=== PATIENT | male | born 1940 | race Caucasian/White ===

== ENCOUNTER 2020-06-06 08:49 | Outpatient (CLI) | payer MEDICARE, BC, SELFPAY ==
[2020-06-06 09:19] VITALS: BMI 26.4
--- NOTE | 2020-06-06 09:21 | NMCV_ITS ---
NM maría perf SPECT r/s* [id number] Maxim Pitts Age: 80 Gender: M : 1940 Exam Date: 06/06/2020 10:05 Ordering Phys: Armond Maurice M.D ([email or web address]) Technologist: CLARENCE Edwards Exam Location: [facility] Indications: SOB STRESS TEST Please see separate stress test report in [facility] for full findings IMAGE PROTOCOL Rest/Stress 1 Lexiscan Day Radiopharmaceutical Dose (mCi) Administration Site Administered by Rest: Tc-99m 10.3 IV CLARENCE Edwards Sestamibi Stress:Tc-99m 33.0 IV CLARENCE Matias Sestamibi Rest: 06-Jun-2020 60 Discovery 630 Stress: 06-Jun-2020 45 Discovery 630 0.4mg Lexiscan. Images obtained in supine and prone position. SPECT RESULTS Technical Quality: Good Raw Data Analysis: Normal Image Corrections: No attenuation or motion correction applied Summed Stress Score: 6 Summed Rest Score: 9 Summed Difference Score: 0 PERFUSION FINDINGS Moderate in size, severe in intensity fixed perfusion defects are noted inferior, inferior lateral and lateral thompson. 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 No significant reversibility is noted. There is a small area of reversibility in the anterior wall. FUNCTIONAL RESULTS (calculated via Gated SPECT) Stress Image LV EF (%): 48 Stress EDV (mL):108 TID: 1.15 Stress ESV (mL):56 FUNCTIONAL FINDINGS: LV systolic function is mildly reduced with EF of 48%. IMPRESSIONS 1. Myocardial perfusion imaging is abnormal with fixed defect of inferior, inferolateral and lateral thompson. 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 2. Small, reversible myocardial perfusion defect is noted in anterior wall. 3. LV systolic function is mildly reduced with EF 48% Armond Maurice MD (Electronically Signed) Final Date: 12 June 2020 10:46 S
--- NOTE | 2020-06-06 09:21 | ECG_ITS ---
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 Interpretive Statements NAME OF STUDY: LEXISCAN SESTAMIBI STRESS TEST INDICATION: [Shortness of Breath, ] Procedure: The baseline blood pressure was 126/63 mmHg with a heart rate of 65 bpm. The electrocardiogram showed normal sinus rhythm with normal ST and T's. Occasional PACs noted. The Lexiscan was infused for a duration of 20 seconds. A total of 0.4 mg of Lexiscan was infused. The stress phase was continued for a total of 5 minutes. Heart rate at end of stress phase was 79 bpm, with a blood pressure 126/46 mmHg. The EKG at the peak infusion revealed sinus rhythm with no significant ST-T wave changes and occasional PVCs. Sestamibi was injected 20 seconds after Lexiscan infusion. Blood pressure at the end of recovery phase was 129/50 mmHg with a heart rate of 79 bpm. No significant changes during recovery phase. Conclusion: 1. Normal EKG response to Lexiscan infusion. 2. No Lexiscan induced chest pain or cardiac arrhythmia. 3. Normal blood pressure and heart rate response. 4. Sestamibi/sestamibi perfusion scan pending; see separate report. Electronically Signed On 06-15-2020 18:44:07 COOK CHILI by Armond Maurice M.D. [email or web address]
[2020-06-06 11:00] VITALS: BP 137/65; PULSE 87
[2020-06-06] MEDS: regadenoson 0.4 Mg/5 ml Syringe IVP (11:01)
== END 2020-06-06 08:50 | disposition home or self-care (01) ==
LOC: CDL 08:55
PROVIDERS: PCP Family Medicine; Visit Provider Internal Medicine
DX: R06.02 Shortness of breath (principal)
CPT/HCPCS: 78452; 93017; A9500; J2785

== ENCOUNTER 2020-06-30 10:17 | Outpatient (CLI) | payer MEDICARE, BC, SELFPAY ==
[2020-06-30 11:00] LABS: Basophils # 0.1 10^3/uL (0.0-0.1); Basophils % 0.8 %; Eosinophils # 0.4 10^3/uL (0.0-0.8); Eosinophils % 5.7 %; Hematocrit 36.8 % (42.0-52.0); Lymphocytes # 4.3 10^3/uL (0.8-4.8); Lymphocytes % 56.4 %; Mean Corpuscular HGB Conc 32.6 g/dL (30.0-36.0); Mean Corpuscular Hemoglobin 33.3 pg (28.0-34.0); Mean Corpuscular Volume 102.2 fL (80-94); Mean Platelet Volume 8.4 fL (7.4-10.4); Monocytes # 0.7 10^3/uL (0.2-0.9); Monocytes % 8.8 %; Neutrophils # 2.12 10^3/uL (1.8-7.7); Neutrophils % 28.2 %; Nucleated Red Blood Cells % 0 %; Platelet Count 254 10^3/cmm (130-400); White Blood Count 7.5 10^3/uL (4.0-10.0)
[2020-06-30 11:10] LABS: INR 1.04 (0.8-1.2)
[2020-06-30 11:15] LABS: Anion Gap 12.2 (5-19); Blood Urea Nitrogen 21 mg/dL (8-23); Carbon Dioxide 29 mmol/L (22-29); Chloride 102 mmol/L (98-107); Glucose 83 mg/dL (65-115); Osmolality Calculated 290 mOsm/kg (285-295); Potassium 4.2 mmol/L (3.5-5.1); Sodium 139 mmol/L (136-145)
== END 2020-06-30 10:18 | disposition home or self-care (01) ==
PROVIDERS: PCP Family Medicine; Visit Provider Internal Medicine
DX: R94.39 Abnormal result of other cardiovascular function study (principal); I25.10 Atherosclerotic heart disease of native coronary artery without angina pectoris
CPT/HCPCS: 36415; 80048; 85025; 85610; 87635

== ENCOUNTER 2020-07-05 06:04 | Day surgery (SDC) | payer MEDICARE, BC, SELFPAY ==
[2020-07-05] VITALS (14 sets, daily range): BP systolic 104–148; BP diastolic 51–76; PULSE 58–71; RESP 12–22; TEMP 36.9; O2SAT 91–97; BMI 25.4
--- NOTE | 2020-07-05 06:00 | XACV_ITS ---
Ht: 157 cm Wt: 90 kg BSA: 2.03 m2 Gender: Male : 1940 Any Known Allergies: No known allergies Exam Priority: Routine Procedure(s): Procedure Description: Diagnostic procedure Procedure Description: Left Heart Catheterization Procedure Description: Left ventriculography Procedure Description: Coronary Angiography Diagnostic Cath Status: Elective Diagnostic Findings * Left main artery: Patent with luminal irregularities. LAD: Patent vessel with luminal irregularities. It has a proximal stent that is patent with 10% in-stent restenosis. It gives rise to a large sized diagonal artery which is also free of significant disease. Left circumflex artery: Patent. Itgives rise to 2 large OM branches. OM1 has 30 to 40% stenosis. OM 2 has proximal 20 to 30% stenosis. RCA: It is a large vessel with a patent mid vessel stent. Otherwise mild luminal irregularities are noted without any significant stenosis. . * No significant disease noted in the Left Main, LAD, Circumflex, or RCA coronary arteries. * Coronary angiography shows right dominance. Conclusions 1. No significant disease noted in the Left Main, LAD, Circumflex, or RCA coronary arteries. 2. Patent prior stents in the RCA and LAD. 3. Normal left ventricular systolic function. Ejection fraction of 50%. Recommendations * Continue current medical management and risk factor modification. Interventional RX Recommendation: none Diagnostic RX Recommendation: medical therapy and/or counseling Anticoagulation: Heparin Ventriculography Ejection Fraction: 50.0 % Pressures Phase:Rest AO : 71 / 37 ( 49 ) @ 2:06:00 AM 73 / 36 ( 51 ) @ 2:12:00 AM 93 / 38 ( 55 ) @ 2:21:00 AM 91 / 24 ( 49 ) @ 2:21:00 AM LV : 100 / -4 / @ 2:19:00 AM 97 / -12 / @ 2:21:00 AM 97 / -11 / @ 2:21:00 AM Valves Phase:DefaultPhase AV : 4.0 @ 8:28:41 AM 4.0 @ 8:28:41 AM AV Mean Gradient: 7.0 @ 8:28:41 AM Clinical Evaluation EBL: 5mL-10mL Procedural Details Procedure Consent Obtained. Pre-Procedure Time Out. Identified patient by full name and date of as verbalized by the patient/guarantor. Does the consent match the physician's order: Yes. Accurate & Complete Informed Consent: Yes. Inpatient/Outpatient History & Physical on Chart: Yes. If H&P is completed, is and addenduem needed: N/A; If yes, is the addendum complete: N/A. Visualize and Verify Site with Patient/Guarantor: N/A. Relevant Radiology Images available: Yes. Pre-op teaching completed and patient verbalized understanding. The risks, benefits, and alternatives of sedation and/or procedure were discussed by physician. The patient agrees to continue. Procedure started. Correct patient, site and procedure confirmed by cath team. PERRLA. Strong, equal hand hand paint mixer bilaterally. Lungs clear x 5 lobes. IV Site on Arrival: 20 gauge in the left anticubital. IV Fluids: 0.9% NaCl at KVO. 0 mL infused prior to [employer]. Pre Procedural Pulses: bilateral dorsalis pedis was 2+. Pre Procedural Pulses: bilateral posterior tibial was 2+. Pre Procedural Pulses: bilateral radial was 3+. right groin was prepped with chloroprep then draped in the usual sterile fashion. right radial was prepped with chloroprep then draped in the usual sterile fashion. Physician notified. Equipment: 6F - Radial. Cardiac Cath Pack. ACIST Manifold Kit Model BT 2000. Heparinized Saline (2 units/mL), 1000 mL bag. Physician arrived. Baseline sample Acquired. HR: 60 BPM. Physician scrubbed in. Immediate Pre-Procedure Time Out. Correct Patient: Yes; Correct Procedure: Yes; Correct Site: Yes; Correct Patient Position: Yes; Correct Supplies: Yes; Dried Flammable Prep: Yes; Blood Products Available: No;. Lidocaine 1% infiltrated to the right radial. Arterial access obtained. A 5 slovak TIG catheter in over wire. Patient's family updated. Multiple views taken of right coronary artery. Catheter redirected to the LCA. Catheter out. A 5 slovak JL4 catheter in over wire. Multiple views taken of left coronary artery. Catheter out. A 5 slovak Angled Pig catheter in over wire. EDP Sample taken: LV 100/-5,6; HR: 65 BPM; SpO2: 97%. LV gram performed in SAENZ @ 10 mL/second for a total of 30 mL. EDP Sample taken: LV 97/-13,7; HR: 69 BPM; SpO2: 97%. Pullback taken: LV 97/-12,7; AO 93/38(55); Mean: 7mmHg, Peak to Peak: 4mmHg, SEP: 20sec/min; HR: 67 BPM; SpO2: 97%. Catheter out. A TR Band was successful obtaining hemostatsis at the Right Radial artery insertion site. TR band placed. Hemostasis obtained. Post Procedure: Pulses reassessed and unchanged. PERRLA. Strong, equal hand hand paint mixer bilaterally. No VTE prophylaxis required. Medication's Wasted: Lidocaine 1% = 18 mL. Medication's Wasted: Nitro = 49.8 mg. Medication's Wasted: Heparin = 1000 units. Total IV fluids: 50 mL. Fluoro: 6:07. Contrast type used: Omnipaque 300 mgI/mL, 500 mL bottle. [id number]. Complications: none. Estimated blood loss: 5mL-10mL. Procedure completed. Patient transferred by bed to CPRU. Post-op diagnosis: nonobstructive CAD patent stents. [facility] Clinical Fraility Score: 3: Managing Well. 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 Chest Pain Symptom Assessment: Atypical Angina. Vital chart was stopped. Access Site Site: Right Radial artery Sheath Size: 6 Fr Hemostasis Method: TR Band Hemostasis Success: Successful Procedure Medications Start: 7:37 AM Stop: 7:37 AM Medication: Aspirin Amount: 81 mg Route: P.O. Start: 7:38 AM Stop: 7:38 AM Medication: Plavix Amount: 300 mg Route: P.O. Start: 7:49 AM Stop: 7:49 AM Medication: Versed Amount: 1 mg Route: I.V. Start: 7:49 AM Stop: 7:49 AM Medication: Fentanyl Amount: 50 mcg Route: I.V. Start: 7:56 AM Stop: 7:56 AM Medication: Nitrogylcerin Amount: 200 mcg Route: I.A. Start: 8:04 AM Stop: 8:04 AM Medication: Heparin Amount: 5000 units Route: I.V. Start: 8:04 AM Stop: 8:04 AM Medication: Versed Amount: 1 mg Route: I.V. Start: 8:04 AM Stop: 8:04 AM Medication: Fentanyl Amount: 50 mcg Route: I.V. I, the attending physician, have reviewed and verified all procedure medications. Yes, all medications given per verbal order History/Risk Factors Hypertension: Yes Dyslipidemia: Yes Renal Disease: No Tobacco Use: Former Prior Interventions PCI: Yes Report Signatures Finalized by Armond Maurice MD on 07/09/2020 12:27 PM
[2020-07-05] MEDS: diphenhydrAMINE 50 mg Capsule PO (06:48)
--- NOTE | 2020-07-05 07:32 | PM.HP ---
Providers/Chief Complaint Admitting Physician: Armond Maurice MD Primary Care Provider: Rajendra Mariano MD Chief Complaint: left cardiac cath History of Present Illness Maxim Pitts is a 80 year old man with past medical history of coronary artery disease, hyperlipidemia, hypertension is who has been getting worsening shortness of breath.Patient had Lexiscan performed that showed reversible defect of anterior wall with fixed defect of inferior and inferolateral thompson. Given his worsening shortness of breath and abnormal stress test plan is to perform coronary angiography with possible percutaneous coronary intervention. Review of Systems Narrative: CONSTITUTIONAL: No fever or chills. [] EYES: No blurring of vision or other visual disturbances lately. [] ENT: No hoarseness of voice, auditory disturbances or sore throat. [] CARDIOVASCULAR: As mentioned above. [] RESPIRATORY: No significant cough. Shortness of breath [] GASTROINTESTINAL: No hematemesis or melena. [] GENITOURINARY: No dysuria or hematuria. [] INTEGUMENTARY: No skin rashes or history of skin cancer. [] NEURO: No transient ischemic attacks or amaurosis. [] PSYCHIATRIC: No history of psychosis or major depression. [] HEMATOLOGIC: No bleeding disorders or significant anemia. [] ENDOCRINE: No history of polyuria or polydipsia. [] MUSCULOSKELETAL: No recent joint pain or swelling. [] ALLERGY/IMMUNOLOGY: As mentioned above. [] Medications/Allergies Home Medications Medication Instructions Recorded Confirmed Last Taken Type clopidogrel 75 mg tablet 75 mg PO DAILY #90 tab 09/21/19 07/05/20 07/04/20 08:00 Rx atorvastatin 40 mg tablet 40 mg PO DAILY #90 tab 09/27/19 07/05/20 07/04/20 08:00 Rx albuterol sulfate 2.5 mg INHALATION Q6H 05/10/20 07/05/20 07/05/20 04:45 History aspirin 81 mg PO DAILY 07/04/20 07/05/20 07/04/20 08:00 History hydrochlorothiazide 12 mg PO DAILY 07/04/20 07/05/20 07/04/20 08:00 History lisinopril 20 mg PO DAILY 07/04/20 07/05/20 07/04/20 08:00 History Allergies Allergy/AdvReac Type Severity Reaction Status Date / Time No Known Allergies Allergy Unverified 09/21/19 15:47 PFSH Acute PFSH: Medical History Asthma Coronary artery disease Hyperlipidemia Hypertension Social History Smoking and tobacco status: former smoker Marital status: Vitals/I&O/Wt Last Vital Signs Temp 98.5 F 07/05/20 06:37 Pulse 69 07/05/20 06:37 Resp 18 07/05/20 06:37 BP 127/64 07/05/20 06:37 Pulse Ox 96 07/05/20 06:37 Weight last 48 hrs Weight 198 lb Physical Exam Narrative: EXAM NARRATIVE: GENERAL: Patient is alert, awake and oriented x3. [] NECK: No jugular vein distension. [] HEENT: No cyanosis. No icterus. No pallor. [] HEART: Regular S1 and S2. No murmur, rub or gallop. [] LUNGS: Clear to auscultate bilaterally. [] ABDOMEN: Soft, nontender and nondistended. Positive bowel sounds. No guarding, rebound or tenderness. [] CENTRAL NERVOUS SYSTEM: Grossly nonfocal. [] EXTREMITIES: Lower extremities with no edema bilaterally. Pulses palpable in the lower extremities, both dorsalis pedis and posterior tibial. [] A&P Assessment and plan (1) Abnormal stress test: Status: Acute (2) Coronary artery disease: Status: Acute (3) Hyperlipidemia: Status: Acute (4) Hypertension: Status: Acute (5) Dyspnea on exertion: Status: Acute Patient has significant coronary artery disease history. He has been having worsening dyspnea on exertion. He underwent Lexiscan that was abnormal in anterior wall with ischemia and fixed defect of inferior, inferior lateral thompson. Given his significant coronary artery disease history with abnormalities on stress test, plan is to perform coronary angiography with possible percutaneous coronary intervention. Risks and benefits of the procedure have been described in detail. Risks including bleeding, infection, abnormal heart rhythm, kidney function worsening, heart attack, stroke or have been described. Patient understands the risks and benefits and wants to proceed with the procedure. Attestations Medical Necessity Statement*: Care not expected to cross 2 midnights. Coding Level of Care Code Acute Phlebotomy Manager for [facility] Diagnoses Abnormal stress test R94.39 Coronary artery disease I25.10 Hyperlipidemia E78.5 Hypertension I10 Dyspnea on exertion R06.00
--- NOTE | 2020-07-05 09:26 | PC.NURSE ---
recovery received pt from cath lab nurse post diagnostic [facility]. pt alert and oriented x3. tr band in place on right wrist. no bruising or swelling noted. pt verbally educated on restrictions of right hand and wrist. pt verbalized understanding. pt placed on monitoring engineer and vitals obtained. will continue to monitor per protocol. pt resting with eye closed. complains of no pain.
--- NOTE | 2020-07-05 09:58 | PC.NURSE ---
tr band attempted to remove air from tr band. bleeding immediately started. air was returned to band. blood cleaned and no bleeding currently.
--- NOTE | 2020-07-05 11:00 | PC.NURSE ---
tr band removal of tr band successful. pt again reminded of restrictions. acknowledged understanding. continuing to monitor per protocol.
== END 2020-07-05 12:13 | disposition home or self-care (01) ==
PROVIDERS: PCP Family Medicine; Visit Provider Internal Medicine
DX: R94.39 Abnormal result of other cardiovascular function study (principal); I25.10 Atherosclerotic heart disease of native coronary artery without angina pectoris; E78.5 Hyperlipidemia, unspecified; I10 Essential (primary) hypertension; R06.00 Dyspnea, unspecified; Z79.82 Long term (current) use of aspirin; J45.909 Unspecified asthma, uncomplicated; Z87.891 Personal history of nicotine dependence; Z95.5 Presence of coronary angioplasty implant and graft
CPT/HCPCS: 12345; 36415; 93452; C1769; C1887; C1894; J1644; J2250; J3010; J3490; J7030; Q0163; Q9967

== ENCOUNTER → 2020-07-12 10:51 | Outpatient (BNVA) | payer MEDICARE, BC, SELFPAY | PROVIDERS: PCP Family Medicine; Visit Provider Nurse Practitioner Family | DX: I25.10 Atherosclerotic heart disease of native coronary artery without angina pectoris (principal) | CPT/HCPCS: 80048 ==

== ENCOUNTER 2022-02-06 09:56 | Outpatient (CLI) | payer MEDICARE, BC, SELFPAY ==
--- NOTE | 2022-02-06 10:00 | USCV_ITS ---
Maxim Pitts Age: 81 Gender: M : 1940 Exam Date: 02/06/2022 10:13 Ordering Phys: Armond Maurice M.D ([email or web address]) Technologist: Jessica Garcia Exam Location: [facility] [place] Indication: shortness of breath, COPD BP: 119 / 72 HR: 65 Rhythm: Sinus Technical Quality: Fair MEASUREMENTS (Male / Female) Normal Values 2D ECHO LV Diastolic Diameter PLAX 3.3 cm 4.2 - 5.9 / 3.9 - 5.3 cm LV Systolic Diameter PLAX 1.5 cm IVS Diastolic Thickness 1.6 cm 0.6 - 1.0 / 0.6 - 0.9 cm IVS Systolic Thickness 1.6 cm LVPW Diastolic Thickness 0.8 cm 0.6 - 1.0 / 0.6 - 0.9 cm LVPW Systolic Thickness 1.4 cm LVOT Diameter 2.1 cm LV Ejection Fraction 2D Teich 85.9 % LV Ejection Fraction MOD 2C 73.1 % LV Ejection Fraction 2C AL 74.5 % LA Diameter 2.5 cm LA Width 3.6 cm LA Height 3.9 cm RA Width 3.6 cm RA Height 3.0 cm Aorta at Sinotubular Diameter 3.2 cm IVC Diameter 1.2 cm DOPPLER AV Peak Velocity 116.0 cm/s LVOT Peak Velocity 116.0 cm/s AV Area Cont Eq vti 3.2 cm squared AV Area Cont Eq pk 3.5 cm squared MV Peak Velocity 83.0 cm/s MV Area PHT 3.9 cm squared Mitral E to A Ratio 0.6 MV E' Velocity 29.5 cm/s Mitral E to MV E' Ratio 6.2 Mitral E to LV E' Lateral Ratio 5.7 Mitral E to LV E' Septal Ratio 6.9 TR Peak Velocity 230.0 cm/s TR Peak Gradient 21.2 mmHg Right Atrial Pressure 3.0 mmHg Pulmonary Artery Systolic Pressu 24.2 mmHg PV Peak Velocity 89.0 cm/s RV Acceleration Time 0.1 s FINDINGS Left Ventricle Normal left ventricular size. LV systolic function is normal with EF of 55-60%. No regional wall motion abnormalities. Grade 1 diastolic dysfunction Right Ventricle The right ventricle is normal in size and function. Right Atrium The right atrium is normal in size. Left Atrium The left atrium is normal in size. Mitral Valve Structurally normal mitral valve without significant stenosis or prolapse. There is mild mitral regurgitation. Aortic Valve Structurally normal aortic valve without significant sclerosis or stenosis. There is no aortic regurgitation. Tricuspid Valve Mild tricuspid regurgitation. Pulmonary artery systolic pressure is normal. Pulmonic Valve Not well-visualized Pericardium Normal pericardium without effusion. Aorta Normal ascending aorta dimension. IVC CONCLUSIONS LV systolic function is normal with EF 55 to 60%. Grade 1 diastolic dysfunction. Mild mitral regurgitation. Mild tricuspid regurgitation. No comparison studies are available Armond Maurice MD (Electronically Signed) Final Date: 19 February 2022 18:09 S
== END 2022-02-06 09:57 | disposition home or self-care (01) ==
LOC: RAD 09:56
PROVIDERS: PCP Family Medicine; Visit Provider Internal Medicine
DX: I08.1 Rheumatic disorders of both mitral and tricuspid valves (principal); J44.9 Chronic obstructive pulmonary disease, unspecified; R06.02 Shortness of breath
CPT/HCPCS: 93306

== ENCOUNTER → 2022-09-30 13:37 | Outpatient (BNVA) | payer MEDICARE, BC, SELFPAY | PROVIDERS: PCP Family Medicine; Visit Provider Internal Medicine | DX: I48.91 Unspecified atrial fibrillation (principal); R06.00 Dyspnea, unspecified; I10 Essential (primary) hypertension; E78.5 Hyperlipidemia, unspecified; I25.10 Atherosclerotic heart disease of native coronary artery without angina pectoris; Z79.01 Long term (current) use of anticoagulants; Z79.82 Long term (current) use of aspirin; Z87.891 Personal history of nicotine dependence | CPT/HCPCS: 99214 ==

== ENCOUNTER → 2023-06-30 13:56 | Outpatient (BNVA) | payer MEDICARE, BC, SELFPAY | PROVIDERS: PCP Family Medicine; Visit Provider Internal Medicine | DX: R06.00 Dyspnea, unspecified (principal); I10 Essential (primary) hypertension; E78.5 Hyperlipidemia, unspecified; I25.10 Atherosclerotic heart disease of native coronary artery without angina pectoris; Z87.891 Personal history of nicotine dependence | CPT/HCPCS: 99214 ==

== ENCOUNTER → 2024-03-29 13:53 | Outpatient (BNVA) | payer MEDICARE, BC, SELFPAY | PROVIDERS: PCP Family Medicine; Visit Provider Internal Medicine | DX: I25.10 Atherosclerotic heart disease of native coronary artery without angina pectoris (principal); R06.00 Dyspnea, unspecified; I10 Essential (primary) hypertension; E78.5 Hyperlipidemia, unspecified | CPT/HCPCS: 99214 ==

== ENCOUNTER 2024-06-01 13:10 | Inpatient (IN) | payer MEDICARE, BC, SELFPAY ==
[2024-06-01] VITALS (10 sets, daily range): BP systolic 92–133; BP diastolic 52–63; PULSE 29–115; RESP 16–27; TEMP 36.9; O2SAT 92–96; BMI 21.8
--- NOTE | 2024-06-01 15:56 | XRR_ITS ---
PROCEDURE INFORMATION: Exam: XR Chest Exam date and time: 06/01/2024 3:58 PM Age: 84 years old Clinical indication: Other: Weakness; Additional info: Dyspnea/cough TECHNIQUE: Imaging protocol: Radiologic exam of the chest. Views: 1 view. COMPARISON: CR XR chest 2V* [id number] 06/07/2019 12:40 PM FINDINGS: Lungs: Left perihilar and infrahilar opacities are nonspecific. These could represent areas of consolidation but underlying mass cannot be excluded on this image. Lung salcido are otherwise clear. Pleural spaces: There is either a skin fold or a loculated pneumothorax in the left lateral mid and lower pleural space. Heart/Mediastinum: Unremarkable. No cardiomegaly. Bones/joints: Unremarkable. XR/XR chest 1V portable [id number] IMPRESSION: 1. There is either a skin fold or a loculated pneumothorax in the left lateral mid and lower pleural space. 2. Left lung airspace opacities as described above. 3. Consider CT for further evaluation if clinically warranted. 4. THIS REPORT CONTAINS FINDINGS THAT MAY BE CRITICAL TO PATIENT CARE. The findings were verbally communicated via telephone conference with EMMY BOURNE at 5:02 PM PAID SEARCH MARKETING ANALYST on 06/01/2024. The findings were acknowledged and understood.
--- NOTE | 2024-06-01 15:56 | ECG_ITS ---
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
--- NOTE | 2024-06-01 16:00 | ED_ITS ---
Documented by User: Karsten Gomez DO 06/02/24 06:03 HPI - Weakness 2 General: Chief complaint: Weakness Stated complaint: Weakness Time Seen by Provider: 06/01/24 15:55 History of Present Illness: Associated symptoms: Denies chest pain, chills, dysuria or fever(s) Review of Systems 2 Const: Denies: fever(s) or chills Card: Denies: chest pain Resp: Denies: dyspnea GI: Denies: abdominal pain : Denies: dysuria, urinary frequency or urinary urgency Musc: Denies: neck pain or back pain Skin/Breast: Denies: rash PFSH ED 2 PFSH: Medical History Asthma Coronary artery disease Hyperlipidemia Hypertension Surgical History History of cardiac catheterization Social History Smoking and tobacco/nicotine status: never used tobacco/nicotine Alcohol intake: never Substance/Drug Use: never Marital status: Physical Exam 2 Const: GENERAL APPEARANCE: cooperative ORIENTATION/CONSCIOUSNESS: Yes awake HENMT: COMMON NORMALS: normocephalic, atraumatic and hearing grossly normal bilaterally HEAD & SCALP: normocephalic and atraumatic Resp: COMMON NORMALS: normal respiratory effort, No retractions, No use of accessory muscles and clear to auscultation bilaterally AUSCULTATION: clear to auscultation bilaterally Cardio: COMMON NORMALS: regular rate, regular rhythm and No murmurs present (Cardio) RATE: regular rate RHYTHM: regular rhythm GI: COMMON NORMALS: Soft to palpation and No hepatosplenomegaly present A USCULTATION: Yes normoactive bowel sounds PALPATION: Yes Soft to palpation, No Tenderness to palpation present (GI), No Guarding due to palpation present (GI) and Yes No hepatosplenomegaly present Extremity: COMMON NORMALS: normal to inspection and capillary refill normal GENERAL: Yes edema Skin: COMMON NORMALS: no rashes or lesions noted GENERAL SKIN EXAM: no rashes or lesions noted Course 2 Vital Signs: Vital signs: Vital Signs Temperature 97.6 F 06/02/24 04:00 Pulse Rate 82 06/02/24 04:00 Respiratory Rate 16 06/02/24 04:00 Blood Pressure 95/55 06/02/24 04:00 Pulse Oximetry 95 06/02/24 04:00 Oxygen Delivery Me thod Room Air 06/02/24 04:00 MDM - Weakness Medical Decision Making Care signed out to Dr. Siddiqui at change of shift. See final notes for diagnosis and disposition. Care transferred over to myself at shift change, chest CTA showed right-sided pulmonary emboli with no heart strain, small area of potential pneumonia in the left upper lobe, new masslike enlargement of the left kidney, these results was discussed with the patient and family and Dr. Serra we will place the patient in [facility] observation for further evaluation and treatment and probably get a CT scan of the abdomen pelvis with contrast in the morning Lab Data 06/02/24 04:20 06/02/24 04:20 Radiology Impressions Chest X-Ray 06/01/24 15:56 IMPRESSION: 1. There is either a skin fold or a loculated pneumothorax in the left lateral mid and lower pleural space. 2. Left lung airspace opacities as described above. 3. Consider CT for further evaluation if clinically warranted. 4. THIS REPORT CONTAINS FINDINGS THAT MAY BE CRITICAL TO PATIENT CARE. The findings were verbally communicated via telephone conference with KARSTEN GOMEZ at 5:02 PM PHOTOGRAPHIC ENGINEER on 06/01/2024. The findings were acknowledged and understood. Chest CTA 06/01/24 16:19 IMPRESSION: 1. Right-sided pulmonary emboli without evidence of right heart strain. 2. Small area of consolidation in the left upper lobe related to infectious/inflammatory etiologies however cannot exclude underlying nodule/mass. 3. Masslike enlargement of the left kidney with surrounding irregular nodularities and perinephric stranding. This needs to be further evaluated with CT abdomen and pelvis with and without contrast. COMMENTS: Consistent with the [employer]'s Incidental Findings Committee white paper (J Am Cal Radiol 2018): Any incidental renal lesion less than 1 cm or classified as too small to characterize, or any incidental cystic renal lesion characterized as simple-appearing, is likely benign. No follow-up imaging is recommended for these lesions per consensus recommendations based on imaging criteria. ADDENDUM: 06/01/24 1715 THIS REPORT CONTAINS FINDINGS THAT MAY BE CRITICAL TO PATIENT CARE. The findings were verbally communicated via telephone conference with HORSTMAN, KARSTEN at 6:39 PM PHOTOGRAPHIC ENGINEER on 06/01/2024. The findings were acknowledged and understood. Laboratory Results WBC 6.36 10^3/uL (3.29-11.43) 06/01/24 16:09 RBC 3.22 10^6/uL (3.85-5.65) L 06/01/24 16:09 Hgb 10.80 g/dL (11.27-16.99) L 06/01/24 16:09 Hct 33.1 % (37-53) L 06/01/24 16:09 MCV 102.8 fl (82-101) H 06/01/24 16:09 MCH 33.5 pg (27-33) H 06/01/24 16:09 MCHC 32.6 g/dL (30-55) 06/01/24 16:09 RDW 16.4 % (12.1-15.1) H 06/01/24 16:09 Plt Count 274 10^3/cmm (157-399) 06/01/24 16:09 MPV 8.9 fL (7.4-10.4) 06/01/24 16:09 Neut % (Auto) 51.1 % 06/01/24 16:09 Lymph % (Auto) 30.0 % 06/01/24 16:09 Banner % (Auto) 17.0 % 06/01/24 16:09 Eos % (Auto) 0.8 % 06/01/24 16:09 Baso % (Auto) 0.9 % 06/01/24 16:09 Neut # (Auto) 3.25 10^3/uL (1.8-7.7) 06/01/24 16:09 Lymph # (Auto) 1.9 10^3/uL (0.8-4.8) 06/01/24 16:09 Banner # (Auto) 1.1 10^3/uL (0.2-0.9) H 06/01/24 16:09 Eos # (Auto) 0.1 10^3/uL (0.0-0.8) 06/01/24 16:09 Baso # (Auto) 0.1 10^3/uL (0.0-0.1) 06/01/24 16:09 Nucleated RBC % (auto) 0 % 06/01/24 16:09 Nucleated RBCs # 0.0 /100WBC 06/01/24 16:09 Specimen Type Arterial 06/01/24 16:31 Sample Site Radial, right 06/01/24 16:31 ABG pH 7.46 (7.35-7.45) H 06/01/24 16:31 ABG pCO2 37.0 mmHg (35-45) 06/01/24 16:31 ABG pO2 69.0 mmHg (80.0-100.0) L 06/01/24 16:31 ABG PO2/FiO2 Ratio 328 06/01/24 16:31 ABG HCO3 26.2 mmol/L (22-26) H 06/01/24 16:31 ABG O2 Saturation 94.9 06/01/24 16:31 ABG Base Excess 2.3 mmol/L (-2.0-2.0) H 06/01/24 16:31 Venkat Test Pos 06/01/24 16:31 A-a O2 Gradient 4.3 mmHg (5-10) L 06/01/24 16:31 Hematocrit 31.4 % (42-52) L 06/01/24 16:31 Hgb O2 Saturation 92.7 % (95-100) L 06/01/24 16:31 Carboxyhemoglobin 1.4 %THgb (0.4-20.1) 06/01/24 16:31 Methemoglobin 0.8 % (0.4-1.5) 06/01/24 16:31 Total Hemoglobin 10.2 g/dL (14-18) L 06/01/24 16:31 Sodium 139.0 mmol/L (131-143) 06/01/24 16:31 Potassium 4.2 mmol/L (3.5-5.0) 06/01/24 16:31 Glucose 109.0 mg/dL (70-115) 06/01/24 16:31 Ionized Calcium 1.4 mmol/L (1.1-1.4) 06/01/24 16:31 O2 Delivery Device Room air 06/01/24 16:31 FiO2 21.0 % 06/01/24 16:31 Psychology Associate ID [email or web address] 06/01/24 16:31 Sodium 140 mmol/L (136-145) 06/01/24 16:09 Potassium 4.8 mmol/L (3.5-5.1) 06/01/24 16:09 Chloride 100 mmol/L (98-107) 06/01/24 16:09 Carbon Dioxide 26 mmol/L (22-29) 06/01/24 16:09 Anion Gap 18.8 (5-19) 06/01/24 16:09 BUN 44 mg/dL (8-23) H 06/01/24 16:09 Creatinine 1.6 mg/dL (0.7-1.2) H 06/01/24 16:09 GFR Calculation Not Reportable 06/01/24 16:09 Glucose 114 mg/dL (65-115) 06/01/24 16:09 Calculated Osmolality 302 mOsm/kg (285-295) H 06/01/24 16:09 Lactic Acid 3.5 mmol/L (0.5-2.2) H 06/01/24 16:09 Calcium 11.0 mg/dL (8.5-10.5) H 06/01/24 16:09 Total Bilirubin 0.9 mg/dL (0.15-1.2) 06/01/24 16:09 AST 20 U/L (0-40) 06/01/24 16:09 ALT 12 U/L (0-41) 06/01/24 16:09 Alkaline Phosphatase 103 U/L (40-130) 06/01/24 16:09 Creatine Kinase 45 U/L (39-308) 06/01/24 16:09 Troponin T Baseline 43 ng/L (0-15) H 06/01/24 16:09 Troponin T 120 Minute 34.13 ng/L (0-15) H 06/01/24 18:20 Delta Troponin T -8.87 ABS# (0-10) L 06/01/24 18:20 C-Reactive Protein 56.8 mg/L (0.0-4.9) H 06/01/24 18:20 NT-Pro-B Natriuret Pep 572 pg/mL (0-450) H 06/01/24 16:09 Total Protein 6.1 g/dL (6.6-8.7) L 06/01/24 16:09 Albumin 3.8 g/dL (3.5-5.2) 06/01/24 16:09 Globulin 2.3 g/dL (1.3-4.6) 06/01/24 16:09 Procalcitonin 0.23 ng/mL (0-0.5) 06/01/24 18:20 Urine Color Yellow (Yellow) 06/01/24 15:55 Urine Appearance Clear (CLEAR) 06/01/24 15:55 Urine pH 5.0 (5-7) 06/01/24 15:55 Ur Specific [place] 1.019 (1.005-1.030) 06/01/24 15:55 Urine Protein Trace (Negative) A 06/01/24 15:55 Urine Glucose (UA) Negative (Normal) 06/01/24 15:55 Urine Ketones Negative (Negative) 06/01/24 15:55 Urine Blood Negative (Negative) 06/01/24 15:55 Urine Nitrate Negative (Negative) 06/01/24 15:55 Urine Bilirubin Negative (Negative) 06/01/24 15:55 Urine Urobilinogen 1.0 mg/dL (Negative) 06/01/24 15:55 Ur Leukocyte Esterase Negative (Negative) 06/01/24 15:55 Urine RBC 0-2 /hpf (0-2) 06/01/24 15:55 Urine WBC 0-5 /hpf (0-5) 06/01/24 15:55 Ur Squamous Epith Cells 0-5 /hpf (0-5) 06/01/24 15:55 Amorphous Sediment Not Reportable 06/01/24 15:55 Urine Bacteria None seen /hpf (NONE) 06/01/24 15:55 Hyaline Casts 28.13 /lpf 06/01/24 15:55 Fine Granular Casts 0-4 /lpf H 06/01/24 15:55 Coronavirus (PCR) Negative (Negative) 06/01/24 16:14 Influenza A (PCR) Negative (Negative) 06/01/24 16:14 Influenza Type B (PCR) Negative (Negative) 06/01/24 16:14 RSV (PCR) Negative (Negative) 06/01/24 16:14 Discharge Plan Discharge Patient Disposition: Placed in Observation Admit Provider: Cecil Serra Clinical Impression: Left kidney mass Pulmonary embolism Qualifiers: Pulmonary embolism type: multiple subsegmental (without acute cor pulmonale) Q ualified Code(s): I26.94 - Multiple subsegmental thrombotic pulmonary emboli without acute cor pulmonale Left upper lobe pneumonia Qualifiers: Pneumonia type: due to unspecified organism Qualified Code(s): J18.9 - Pneumonia, unspecified organism Coding Level of Care Code ED Watch Assembly Inspector for [facility] Fwd Related Data Home Medications Medication Instructions Recorded Confirmed albuterol sulfate 2.5 mg/3 mL 2.5 mg inhalation Q6H 05/10/20 06/01/24 (0.083 %) solution for nebulization aspirin 81 mg tablet,delayed 81 mg PO DAILY heart 06/01/24 06/01/24 release (Marcell Low Dose Aspirin) atorvastatin 40 mg tablet 40 mg PO DAILY 06/01/24 06/01/24 hydrochlorothiazide 12.5 mg tablet 12.5 mg PO DAILY 06/01/24 06/01/24 lisinopril 20 mg tablet 20 mg PO DAILY 06/01/24 06/01/24 Allergies Allergy/AdvReac Type Severity Reaction Status Date / Time No Known Allergies Allergy Verified 03/29/24 14:11 Documented by User: Bryan Siddiqui DO 06/02/24 01:25 HPI - Weakness 2 General: Chief complaint: Weakness Stated complaint: Weakness Time Seen by Provider: 06/01/24 15:55 History of Present Illness: Patient presents to the ER with sudden onset shortness of breath and weakness started about 3 days ago and is gotten worse. He became short of breath and winded when walking any distance at all. He does not like to get up out of his chair and usual for him. He is not on any anticoagulation other than 81 mg aspirin. PFSH ED 2 PFSH: Medical History Asthma Coronary artery disease Hyperlipidemia Hypertension Surgical History History of cardiac catheterization Social History Smoking and tobacco/nicotine status: never used tobacco/nicotine Alcohol intake: never Substance/Drug Use: never Marital status: Course 2 Vital Signs: Vital signs: Vital Signs Temperature 97.6 F 06/02/24 04:00 Pulse Rate 82 06/02/24 04:00 Respiratory Rate 16 06/02/24 04:00 Blood Pressure 95/55 06/02/24 04:00 Pulse Oximetry 95 06/02/24 04:00 Oxygen Delivery Me thod Room Air 06/02/24 04:00 MDM - Weakness Medical Decision Making Care transferred over to myself at shift change, chest CTA showed right-sided pulmonary emboli with no heart strain, small area of potential pneumonia in the left upper lobe, new masslike enlargement of the left kidney, these results was discussed with the patient and family and Dr. Serra we will place the patient in [facility] observation for further evaluation and treatment and probably get a CT scan of the abdomen pelvis with contrast in the morning Lab Data 06/02/24 04:20 06/02/24 04:20 Radiology Impressions Chest X-Ray 06/01/24 15:56 IMPRESSION: 1. There is either a skin fold or a loculated pneumothorax in the left lateral mid and lower pleural space. 2. Left lung airspace opacities as described above. 3. Consider CT for further evaluation if clinically warranted. 4. THIS REPORT CONTAINS FINDINGS THAT MAY BE CRITICAL TO PATIENT CARE. The findings were verbally communicated via telephone conference with KARSTEN GOMEZ at 5:02 PM PHOTOGRAPHIC ENGINEER on 06/01/2024. The findings were acknowledged and understood. Chest CTA 06/01/24 16:19 IMPRESSION: 1. Right-sided pulmonary emboli without evidence of right heart strain. 2. Small area of consolidation in the left upper lobe related to infectious/inflammatory etiologies however cannot exclude underlying nodule/mass. 3. Masslike enlargement of the left kidney with surrounding irregular nodularities and perinephric stranding. This needs to be further evaluated with CT abdomen and pelvis with and without contrast. COMMENTS: Consistent with the [employer]'s Incidental Findings Committee white paper (J Am Cal Radiol 2018): Any incidental renal lesion less than 1 cm or classified as too small to characterize, or any incidental cystic renal lesion characterized as simple-appearing, is likely benign. No follow-up imaging is recommended for these lesions per consensus recommendations based on imaging criteria. ADDENDUM: 06/01/24 7081 THIS REPORT CONTAINS FINDINGS THAT MAY BE CRITICAL TO PATIENT CARE. The findings were verbally communicated via telephone conference with KARSTEN GOMEZ at 6:39 PM PHOTOGRAPHIC ENGINEER on 06/01/2024. The findings were acknowledged and understood. Laboratory Results WBC 6.36 10^3/uL (3.29-11.43) 06/01/24 16:09 RBC 3.22 10^6/uL (3.85-5.65) L 06/01/24 16:09 Hgb 10.80 g/dL (11.27-16.99) L 06/01/24 16:09 Hct 33.1 % (37-53) L 06/01/24 16:09 MCV 102.8 fl (82-101) H 06/01/24 16:09 MCH 33.5 pg (27-33) H 06/01/24 16:09 MCHC 32.6 g/dL (30-55) 06/01/24 16:09 RDW 16.4 % (12.1-15.1) H 06/01/24 16:09 Plt Count 274 10^3/cmm (157-399) 06/01/24 16:09 MPV 8.9 fL (7.4-10.4) 06/01/24 16:09 Neut % (Auto) 51.1 % 06/01/24 16:09 Lymph % (Auto) 30.0 % 06/01/24 16:09 Banner % (Auto) 17.0 % 06/01/24 16:09 Eos % (Auto) 0.8 % 06/01/24 16:09 Baso % (Auto) 0.9 % 06/01/24 16:09 Neut # (Auto) 3.25 10^3/uL (1.8-7.7) 06/01/24 16:09 Lymph # (Auto) 1.9 10^3/uL (0.8-4.8) 06/01/24 16:09 Banner # (Auto) 1.1 10^3/uL (0.2-0.9) H 06/01/24 16:09 Eos # (Auto) 0.1 10^3/uL (0.0-0.8) 06/01/24 16:09 Baso # (Auto) 0.1 10^3/uL (0.0-0.1) 06/01/24 16:09 Nucleated RBC % (auto) 0 % 06/01/24 16:09 Nucleated RBCs # 0.0 /100WBC 06/01/24 16:09 Specimen Type Arterial 06/01/24 16:31 Sample Site Radial, right 06/01/24 16:31 ABG pH 7.46 (7.35-7.45) H 06/01/24 16:31 ABG pCO2 37.0 mmHg (35-45) 06/01/24 16:31 ABG pO2 69.0 mmHg (80.0-100.0) L 06/01/24 16:31 ABG PO2/FiO2 Ratio 328 06/01/24 16:31 ABG HCO3 26.2 mmol/L (22-26) H 06/01/24 16:31 ABG O2 Saturation 94.9 06/01/24 16:31 ABG Base Excess 2.3 mmol/L (-2.0-2.0) H 06/01/24 16:31 Venkat Test Pos 06/01/24 16:31 A-a O2 Gradient 4.3 mmHg (5-10) L 06/01/24 16:31 Hematocrit 31.4 % (42-52) L 06/01/24 16:31 Hgb O2 Saturation 92.7 % (95-100) L 06/01/24 16:31 Carboxyhemoglobin 1.4 %THgb (0.4-20.1) 06/01/24 16:31 Methemoglobin 0.8 % (0.4-1.5) 06/01/24 16:31 Total Hemoglobin 10.2 g/dL (14-18) L 06/01/24 16:31 Sodium 139.0 mmol/L (131-143) 06/01/24 16:31 Potassium 4.2 mmol/L (3.5-5.0) 06/01/24 16:31 Glucose 109.0 mg/dL (70-115) 06/01/24 16:31 Ionized Calcium 1.4 mmol/L (1.1-1.4) 06/01/24 16:31 O2 Delivery Device Room air 06/01/24 16:31 FiO2 21.0 % 06/01/24 16:31 Psychology Associate ID [email or web address] 06/01/24 16:31 Sodium 140 mmol/L (136-145) 06/01/24 16:09 Potassium 4.8 mmol/L (3.5-5.1) 06/01/24 16:09 Chloride 100 mmol/L (98-107) 06/01/24 16:09 Carbon Dioxide 26 mmol/L (22-29) 06/01/24 16:09 Anion Gap 18.8 (5-19) 06/01/24 16:09 BUN 44 mg/dL (8-23) H 06/01/24 16:09 Creatinine 1.6 mg/dL (0.7-1.2) H 06/01/24 16:09 GFR Calculation Not Reportable 06/01/24 16:09 Glucose 114 mg/dL (65-115) 06/01/24 16:09 Calculated Osmolality 302 mOsm/kg (285-295) H 06/01/24 16:09 Lactic Acid 3.5 mmol/L (0.5-2.2) H 06/01/24 16:09 Calcium 11.0 mg/dL (8.5-10.5) H 06/01/24 16:09 Total Bilirubin 0.9 mg/dL (0.15-1.2) 06/01/24 16:09 AST 20 U/L (0-40) 06/01/24 16:09 ALT 12 U/L (0-41) 06/01/24 16:09 Alkaline Phosphatase 103 U/L (40-130) 06/01/24 16:09 Creatine Kinase 45 U/L (39-308) 06/01/24 16:09 Troponin T Baseline 43 ng/L (0-15) H 06/01/24 16:09 Troponin T 120 Minute 34.13 ng/L (0-15) H 06/01/24 18:20 Delta Troponin T -8.87 ABS# (0-10) L 06/01/24 18:20 C-Reactive Protein 56.8 mg/L (0.0-4.9) H 06/01/24 18:20 NT-Pro-B Natriuret Pep 572 pg/mL (0-450) H 06/01/24 16:09 Total Protein 6.1 g/dL (6.6-8.7) L 06/01/24 16:09 Albumin 3.8 g/dL (3.5-5.2) 06/01/24 16:09 Globulin 2.3 g/dL (1.3-4.6) 06/01/24 16:09 Procalcitonin 0.23 ng/mL (0-0.5) 06/01/24 18:20 Urine Color Yellow (Yellow) 06/01/24 15:55 Urine Appearance Clear (CLEAR) 06/01/24 15:55 Urine pH 5.0 (5-7) 06/01/24 15:55 Ur Specific [place] 1.019 (1.005-1.030) 06/01/24 15:55 Urine Protein Trace (Negative) A 06/01/24 15:55 Urine Glucose (UA) Negative (Normal) 06/01/24 15:55 Urine Ketones Negative (Negative) 06/01/24 15:55 Urine Blood Negative (Negative) 06/01/24 15:55 Urine Nitrate Negative (Negative) 06/01/24 15:55 Urine Bilirubin Negative (Negative) 06/01/24 15:55 Urine Urobilinogen 1.0 mg/dL (Negative) 06/01/24 15:55 Ur Leukocyte Esterase Negative (Negative) 06/01/24 15:55 Urine RBC 0-2 /hpf (0-2) 06/01/24 15:55 Urine WBC 0-5 /hpf (0-5) 06/01/24 15:55 Ur Squamous Epith Cells 0-5 /hpf (0-5) 06/01/24 15:55 Amorphous Sediment Not Reportable 06/01/24 15:55 Urine Bacteria None seen /hpf (NONE) 06/01/24 15:55 Hyaline Casts 28.13 /lpf 06/01/24 15:55 Fine Granular Casts 0-4 /lpf H 06/01/24 15:55 Coronavirus (PCR) Negative (Negative) 06/01/24 16:14 Influenza A (PCR) Negative (Negative) 06/01/24 16:14 Influenza Type B (PCR) Negative (Negative) 06/01/24 16:14 RSV (PCR) Negative (Negative) 06/01/24 16:14 All radiology interpretation(s) finalized by discharge Discharge Plan Discharge Patient Disposition: Placed in Observation Admit Provider: Cecil Serra Clinical Impression: Left kidney mass Pulmonary embolism Qualifiers: Pulmonary embolism type: multiple subsegmental (without acute cor pulmonale) Q ualified Code(s): I26.94 - Multiple subsegmental thrombotic pulmonary emboli without acute cor pulmonale Left upper lobe pneumonia Qualifiers: Pneumonia type: due to unspecified organism Qualified Code(s): J18.9 - Pneumonia, unspecified organism Coding Level of Care Code ED Watch Assembly Inspector for [facility] Fwd Related Data Home Medications Medication Instructions Recorded Confirmed albuterol sulfate 2.5 mg/3 mL 2.5 mg inhalation Q6H 05/10/20 06/01/24 (0.083 %) solution for nebulization aspirin 81 mg tablet,delayed 81 mg PO DAILY heart 06/01/24 06/01/24 release (Marcell Low Dose Aspirin) atorvastatin 40 mg tablet 40 mg PO DAILY 06/01/24 06/01/24 hydrochlorothiazide 12.5 mg tablet 12.5 mg PO DAILY 06/01/24 06/01/24 lisinopril 20 mg tablet 20 mg PO DAILY 06/01/24 06/01/24 Allergies Allergy/AdvReac Type Severity Reaction Status Date / Time No Known Allergies Allergy Verified 03/29/24 14:11
[2024-06-01 16:03] LABS: Bilirubin Urine Negative (Negative); Blood Urine Negative (Negative); Glucose Urine UA Negative (Normal); Ketones Urine Negative (Negative); Leukocyte Esterase Urine Negative (Negative); Nitrate Urine Negative (Negative); Protein Urine Trace (Negative); Specific Gravity, Urine 1.019 (1.005-1.030); Urine Appearance Clear (CLEAR); Urine Color Yellow (Yellow)
[2024-06-01 16:05] LABS: Add Urine Microscopic? YES; Bacteria Urine None Seen /hpf; Hyaline Casts Urine 28.13 /lpf; RBC Urine 0-2 /hpf (0-2); Squamous Epithelial Cell Urine 0-5 /hpf (0-5); WBC Urine 0-5 /hpf (0-5)
[2024-06-01] MEDS: dexamethasone 10 mg/mL INJ IM (16:15)
[2024-06-01 16:19] LABS: Add Urine Culture? No; Fine Granular Casts Urine 0-4 /lpf; UA Slide Review UA Slide Review Perf
--- NOTE | 2024-06-01 16:19 | CTR_ITS ---
PROCEDURE INFORMATION: Exam: CTA Chest With Contrast Exam date and time: 06/01/2024 5:33 PM Age: 84 years old Clinical indication: Dyspnea; Additional info: Dyspnea tachycardia hypoxia TECHNIQUE: Imaging protocol: Computed tomographic angiography of the chest with contrast. Exam focused on the arteries. 3D rendering (Not supervised by radiologist): MIP and/or 3D reconstructed images were created by the technologist. Radiation optimization: All CT scans at this facility use at least one of these dose optimization techniques: automated exposure control; mA and/or kV adjustment per patient size (includes targeted exams where dose is matched to clinical indication); or iterative reconstruction. Contrast material: OMNI 350; Contrast volume: 100 ml; Contrast route: INTRAVENOUS (IV); COMPARISON: CR XR chest 1V portable [id number] 06/01/2024 3:58 PM RADIATION DOSE METRICS: Total DLP (mGy-cm): 332.24 FINDINGS: Pulmonary arteries: Pulmonary emboli to segmental branches to the right upper lobe. Additional emboli to the segmental branches to the right middle lobe. No evidence of right heart strain. The RV to LV ratio is less than 1.0. Aorta: Unremarkable. No aortic aneurysm. No aortic dissection. Lungs: Small bilateral pulmonary nodules. Left upper lobe area of consolidation measuring 4.0 x 2.9 cm. Pleural spaces: Unremarkable. No pneumothorax. No pleural effusion. Heart: No evidence of right heart strain. Coronary arteries: Coronary artery calcifications. Lymph nodes: Unremarkable. No enlarged lymph nodes. Kidneys: Right renal cysts. Masslike enlargement of the left kidney with multiple irregular surrounding perinephric nodules and stranding. Bones/joints: Unremarkable. No acute fracture. Soft tissues: Unremarkable. CT/CT angio chest PE protcl [id number] IMPRESSION: 1. Right-sided pulmonary emboli without evidence of right heart strain. 2. Small area of consolidation in the left upper lobe related to infectious/inflammatory etiologies however cannot exclude underlying nodule/mass. 3. Masslike enlargement of the left kidney with surrounding irregular nodularities and perinephric stranding. This needs to be further evaluated with CT abdomen and pelvis with and without contrast. COMMENTS: Consistent with the [employer]'s Incidental Findings Committee white paper (J Am Cal Radiol 2018): Any incidental renal lesion less than 1 cm or classified as too small to characterize, or any incidental cystic renal lesion characterized as simple-appearing, is likely benign. No follow-up imaging is recommended for these lesions per consensus recommendations based on imaging criteria.
[2024-06-01 16:25] LABS: Basophils # 0.1 10^3/uL (0.0-0.1); Basophils % 0.9 %; Eosinophils # 0.1 10^3/uL (0.0-0.8); Eosinophils % 0.8 %; Hematocrit 33.1 % (37-53); Lymphocytes # 1.9 10^3/uL (0.8-4.8); Mean Corpuscular HGB Conc 32.6 g/dL (30-55); Mean Corpuscular Hemoglobin 33.5 pg (27-33); Mean Corpuscular Volume 102.8 fl (82-101); Mean Platelet Volume 8.9 fL (7.4-10.4); Monocytes # 1.1 10^3/uL (0.2-0.9); Neutrophils # 3.25 10^3/uL (1.8-7.7); Neutrophils % 51.1 %; Nucleated Red Blood Cells % 0 %; Platelet Count 274 10^3/cmm (157-399); Red Blood Count 3.22 10^6/uL (3.85-5.65); Red Cell Distribution Width 16.4 % (12.1-15.1); White Blood Count 6.36 10^3/uL (3.29-11.43)
[2024-06-01] MEDS: ipratropium-albuterol 3 mL Neb INHALATION (16:33)
[2024-06-01 16:43] LABS: ABG PH Result 7.46 (7.35-7.45); Alveolar-Arterial Oxygen Gradi 4.3 mmHg (5-10); Arterial Blood Gas Hematocrit 31.4 % (42-52); Base Excess ABG 2.3 mmol/L (-2.0-2.0); Blood Gas Allen Test Pos; Blood Gas Sample Site Radial, right; Blood Gas Sample Type Arterial; Carboxyhemoglobin 1.4 %THgb (0.4-20.1); HCO3 ABG 26.2 mmol/L (22-26); HGB O2 Sat 92.7 % (95-100); Ionized Calcium Level - ABG 1.4 mmol/L (1.1-1.4); Methemoglobin 0.8 % (0.4-1.5); Oxygen Device ROOM AIR; Oxygen Saturation ABG 94.9; PO2 FiO2 Ratio Arterial Blood 328; Potassium Level - ABG 4.2 mmol/L (3.5-5.0); Total Hemoglobin 10.2 g/dL (14-18)
[2024-06-01 16:43] LABS: Lactic Sepsis W/Reflex 3.5 mmol/L (0.5-2.2)
[2024-06-01 16:59] LABS: Alanine Aminotransferase 12 U/L (0-41); Albumin Level 3.8 g/dL (3.5-5.2); Alkaline Phosphatase 103 U/L (40-130); Anion Gap 18.8 (5-19); Aspartate Amino Transferase 20 U/L (0-40); Blood Urea Nitrogen 44 mg/dL (8-23); Carbon Dioxide 26 mmol/L (22-29); Chloride 100 mmol/L (98-107); Creatine Phosphokinase 45 U/L (39-308); Creatinine Clr Calc Pharmacy 38.9863; Globulin 2.3 g/dL (1.3-4.6); Glucose 114 mg/dL (65-115); NT Pro B Type Natriuretic Pept 572 pg/mL (0-450); Osmolality Calculated 302 mOsm/kg (285-295); Potassium 4.8 mmol/L (3.5-5.1); Sodium 140 mmol/L (136-145); Total Bilirubin 0.9 mg/dL (0.15-1.2); Total Protein 6.1 g/dL (6.6-8.7)
[2024-06-01 17:10] LABS: Covid PCR NEGATIVE (Negative); Influenza A NEGATIVE (Negative); Influenza B NEGATIVE (Negative); Respiratory Syncytial Virus Ce NEGATIVE (Negative)
[2024-06-01] MEDS: iohexol 350 mg/mL 500 mL Btl (per mL) IV (17:33)
[2024-06-01 17:37] LABS: Troponin(5th) Baseline 43 ng/L (0-15)
[2024-06-01] MEDS: SODIUM CHLORIDE 0.9% 2316.03 ML IV (18:01)
[2024-06-01 18:07] LABS: Reflex Lactate Order REFLEX LACTIC ORDERD
--- NOTE | 2024-06-01 18:22 | ECG_ITS ---
[facility]24-[facility] Pat Name: Maxim Pitts Department: Room: Gender: Male [employer]: : 1940 Requested By: Karsten Staples Order Number: [id number] Reading MD: VALERY MACKENZIE Measurements Intervals [place] Rate: 93 P: 78 [place]: 152 QRS: 61 QRSD: 93 T: 76 QT: 320 QTc: 399 Interpretive Statements SINUS RHYTHM NONSPECIFIC T-WAVE ABNORMALITY Compared to ECG 06/01/2024 16:21:29 Junctional rhythm no longer present T-wave abnormality still present Electronically Signed On 06-02-2024 18:09:54 DEPUTY SHERIFF/INVESTIGATOR by VALERY MACKENZIE [email or web address]
[2024-06-01 18:42] LABS: Troponin 5 2HR 34.13 ng/L (0-15); Troponin 5 2HR Delta -8.87 ABS# (0-10)
--- NOTE | 2024-06-01 19:22 | P.HP_ITS ---
Providers/Chief Complaint 2 Primary Care Provider: Rajendra Mariano MD Chief Complaint: Weakness History of Present Illness Maxim Pitts is a 84 year old male with a past medical history significant for coronary artery disease, COPD, hypertension, hyperlipidemia, and multiple other comorbidities who presented the emergency department with severe weakness. Patient states he was in his usual state of health until about 3 weeks ago. At that time he developed significant numbness in his left lower leg distal to his knee, worse in his foot. He reports he is lost proprioception and has significant difficulty walking he has such. He has attributed the symptoms to underlying spinal stenosis. He reports prior surgery for stenosis due to symptoms in his right lower extremity. Patient reports for the past week he has developed severe weakness which is extremely atypical for him. Symptoms have been progressive. Endorses associated symptoms of shortness of breath. Denies productive cough, fevers or chills. Daughter is bedside and very supportive. She provided collateral information. In the emergency department, patient was found to be tachypneic and tachycardic. Labs were notable for elevated BUN to 44 and creatinine 1.6. He is found to have lactic acidosis with a lactate of 3.5. Mild hypercalcemia to 11 noted. Troponin was mildly elevated with a negative delta Troponin. NT-proBNP elevated to 572. Urinalysis was largely unremarkable. Chest x-ray was abnormal. CT PE revealed a right sided pulmonary embolism without evidence of right sided heart strain, small consolidation left upper lobe without ability to exclude underlying nodule or mass, and incidentally found masslike enlargement of the left kidney with irregular nodularity and perinephric stranding. Radiology recommending dedicated CT abdomen pelvis with and without contrast. Radiologist recommended waiting until at least tomorrow to consider CT due to contrast exposure and already elevated renal labs. Review of Systems 2 Narrative: A complete review of systems was obtained and is negative except as stated in HPI. Medications/Allergies Home Medications Medication Instructions Recorded Confirmed Last Taken Type albuterol sulfate 2.5 mg/3 mL 2.5 mg inhalation Q6H 05/10/20 06/01/24 05/31/24 History (0.083 %) solution for nebulization aspirin 81 mg tablet,delayed 81 mg PO DAILY heart 06/01/24 06/01/24 05/31/24 History release (Marcell Low Dose Aspirin) atorvastatin 40 mg tablet 40 mg PO DAILY 06/01/24 06/01/2406/01/24 History hydrochlorothiazide 12.5 mg tablet 12.5 mg PO DAILY 06/01/24 06/01/24 06/01/24 History lisinopril 20 mg tablet 20 mg PO DAILY 06/01/24 06/01/24 05/31/24 History Allergies Allergy/AdvReac Type Severity Reaction Status Date / Time No Known Allergies Allergy Verified 03/29/24 14:11 PFSH Acute 2 PFSH: Medical History Asthma Coronary artery disease Hyperlipidemia Hypertension Surgical History History of cardiac catheterization Social History Smoking and tobacco/nicotine status: never used tobacco/nicotine Alcohol intake: never Substance/Drug Use: never Marital status: Vitals/I&O/Wt Last Vital Signs Pulse 94 06/01/24 19:17 Resp 23 H 06/01/24 19:17 BP 129/58 06/01/24 19:17 Pulse Ox 96 06/01/24 19:17 O2 Del Method Room Air 06/01/24 18:25 Weight last 48 hrs Weight 77.201 kg Physical Exam 2 Narrative: General: Patient is awake and alert. Conversational. Head: Normocephalic. Atraumatic. EOM intact. Neck: No JVD. Cardiovascular: RRR. No gallops. No murmurs. Lungs: Clear to auscultation, no use of accessory muscles, no crackles or wheezes. Skin: No jaundice. No rashes. Abdomen: Normal bowel sounds, abdomen soft and nontender. Genito Urinary: Genital exam not performed since complaints not related. Rectal: Rectal exam not performed since no symptoms indicated blood loss. Extremities: No cyanosis or clubbing. Musculoskeletal: No swollen or erythematous joints. Negative Homans' sign. Hair loss on lower extremities bilaterally. Neurological: Moves all 4 extremities. No myoclonus. Decreased sensation in left lower extremity. Data 06/01/24 16:09 06/01/24 16:09 A&P Assessment and plan (1) Left upper lobe pneumonia: Imaging reviewed; consolidation noted; could be suble underlying nodule/mass Vitals w/ tachycardia and tachypnea No leukocytosis or reported fevers Check procal and CRP Received Zosyn in ED, rotate to CAP coverage w/ ceftriaxone/azithromycin Qualifiers: Pneumonia type: due to unspecified organism Qualified Code(s): J18.9 - Pneumonia, unspecified organism (2) Left kidney mass: Labs with elevated BUN and Cr; unclear if now chronic or KEVIN Contrast exposure from CT PE noted Received IV fluid boluses in ED Repeat labs in AM Plan to order CT abd/pelvis w and wo if renal function permits (3) Pulmonary embolism: Start therapeutic Lovenox; transition to DOAC when indicated No heart strain on CT imaging Elevated NT-proBNP and troponin noted Complete transthoracic echocardiogram ordered Telemetry monitoring Qualifiers: Pulmonary embolism type: multiple subsegmental (without acute cor pulmonale) Qualified Code(s): I26.94 - Multiple subsegmental thrombotic pulmonary emboli without acute cor pulmonale (4) Coronary artery disease: Follows in cardiology clinic Continue home medications Qualifiers: Coronary Disease-Associated Artery/Lesion type: [place] artery [place] vs. transplanted heart: [place] heart Associated angina: without angina Qualified Code(s): I25.10 - Atherosclerotic heart disease of [place] coronary artery without angina pectoris (5) Left leg numbness: Symptoms could be related to spinal stenosis; query if DVT was previously/currently present as well No obvious signs of DVT on exam Consider PT/OT consultation given associated severe weakness producing recent change in functional status Plan DVT ppx: Lovenox Attestations 2 Medical Necessity Statement*: Patient presents with severe weakness, found to have pneumonia, pulmonary embolism, and incidentally found kidney lesion expected hospitalization not to cross 2 midnights for further itching, antibiotics, and blood thinner. Coding Level of Care Code Acute Code for [facility] Fwd Diagnoses Left upper lobe pneumonia J18.9 Pneumonia type: due to unspecified organism Left kidney mass N28.89 Pulmonary embolism I26.94 Pulmonary embolism type: multiple subsegmental (without acute cor pulmonale) Coronary artery disease involving [place] coronary artery of [place] heart without angina pectoris I25.10 Coronary Disease-Associated Artery/Lesion type: [place] artery [place] vs. transplanted heart: [place] heart Associated angina: without angina Left leg numbness R20.0
--- NOTE | 2024-06-01 19:35 | USCV_ITS ---
Maxim Pitts Age: 84 Gender: M : 1940 Exam Date: 06/01/2024 20:20 Ordering Phys: Cecil Serra MD Technologist: BROOKE [place]am [place] [facility] [place] Indication: PE, evaluate for heart strain. history of asthma, CAD, HL, HTN BP: 129 / 58 HR: 103 Rhythm: Sinus tachycardia Technical Quality: Adequate MEASUREMENTS (Male / Female) Normal Values 2D ECHO LV Diastolic Diameter PLAX 4.1 cm 4.2 - 5.9 / 3.9 - 5.3 cm IVS Diastolic Thickness 1.8 cm 0.6 - 1.0 / 0.6 - 0.9 cm IVS Systolic Thickness 1.9 cm LVPW Diastolic Thickness 1.7 cm 0.6 - 1.0 / 0.6 - 0.9 cm LVPW Systolic Thickness 2.1 cm LVOT Diameter 2.4 cm LV Ejection Fraction 2D Teich 61.4 % LV Ejection Fraction MOD 4C 57.2 % LV Ejection Fraction MOD 2C 67.3 % LV Ejection Fraction 2C AL 67.9 % LA Diameter 3.5 cm Aorta at Sinotubular Diameter 3.4 cm IVC Diameter 1.8 cm M-MODE LA Ao Ratio MM 0.9 AV Cusp Separation MM 1.7 cm DOPPLER AV Peak Velocity 162.0 cm/s LVOT Peak Velocity 181.0 cm/s AV Area Cont Eq vti 4.4 cm squared AV Area Cont Eq pk 4.9 cm squared MV Peak Velocity 134.0 cm/s MV Area PHT 2.8 cm squared Mitral E to A Ratio 0.7 TR Peak Velocity 307.0 cm/s TR Peak Gradient 37.7 mmHg TV Peak E Velocity 74.0 cm/s Right Atrial Pressure 3.0 mmHg Pulmonary Artery Systolic Pressu 40.7 mmHg PV Peak Velocity 146.0 cm/s FINDINGS Left Ventricle Normal left ventricular size and systolic function, EF 67%. No regional wall motion abnormalities. Right Ventricle The right ventricle is normal in size and function. Right Atrium The right atrium is normal in size. Left Atrium The left atrium is normal in size. Mitral Valve Thickened mitral valve. Aortic Valve Thickened aortic valve. Trace aortic valve regurgitation. Tricuspid Valve Mild tricuspid valve regurgitation. Pulmonic Valve No gross abnormalities noted Pericardium Normal pericardium without effusion. Aorta Normal ascending aorta dimension. IVC Normal inferior vena cava. CONCLUSIONS Normal left ventricular size and systolic function, EF 67%. No regional wall motion abnormalities. Thickened mitral valve. Thickened aortic valve. Trace aortic valve regurgitation. Peak velocity across the aortic valve was 1.6 m/s Mild tricuspid valve regurgitation. Estimated pulmonary artery peak systolic pressure 41 mmHg There is no pericardial effusion. Compared to the study from 02/06/2022, there is no significant change Dr Lupillo Amin MD FAC (Electronically Signed) Final Date: 03 June 2024 07:26 S
[2024-06-01] MEDS: enoxaparin 80 mg/0.8 mL Syringe SUBCUT (20:02)
[2024-06-01] MEDS: piperacillin-tazobactam 3.375 GM in sodium chloride 0.9% (plus) 50 ML IV (20:02)
[2024-06-01 20:13] LABS: Lactic Acid level (Lactate) 2.1 mmol/L (0.5-2.2)
[2024-06-01 20:14] LABS: C Reactive Protein 56.8 mg/L (0.0-4.9)
[2024-06-01 20:22] LABS: Procalcitonin 0.23 ng/mL (0-0.5)
[2024-06-01] MEDS: cefTRIAXone 1,000 mg SDV 1000 MG IVP (21:29)
[2024-06-01] MEDS: AZITHROMYCIN ADD-Vantage 500 MG in 0.9% NaCl ADD-Vantage 250 ML 250 MG IV (21:30)
--- NOTE | 2024-06-01 21:32 | ECG_ITS ---
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
[2024-06-01] MEDS: ALPRAZolam 0.5 mg Tablet PO (22:49)
[2024-06-01 23:25] LABS: Troponin 5 6HR 33.07 ng/L (0-15)
[2024-06-01 23:26] LABS: Troponin 5 6HR Delta -9.93 ng/L (0-12)
[2024-06-02] VITALS (8 sets, daily range): BP systolic 91–120; BP diastolic 43–62; PULSE 71–105; RESP 16–18; TEMP 36.2–36.7; O2SAT 91–97
[2024-06-02 04:56] LABS: Basophils % 0.4 %; Lymphocytes % 43.5 %; Mean Corpuscular Hemoglobin 33.2 pg (27-33); Mean Corpuscular Volume 103.7 fl (82-101); Mean Platelet Volume 9.2 fL (7.4-10.4); Monocytes # 0.1 10^3/uL (0.2-0.9); Monocytes % 6.1 %; Neutrophils # 1.11 10^3/uL (1.8-7.7); Neutrophils % 48.3 %; Nucleated Red Blood Cells % 0 %; Platelet Count 234 10^3/cmm (157-399); Red Blood Count 2.41 10^6/uL (3.85-5.65)
[2024-06-02 05:11] LABS: Anion Gap 12.8 (5-19); Blood Urea Nitrogen 47 mg/dL (8-23); Calcium 8.5 mg/dL (8.5-10.5); Carbon Dioxide 25 mmol/L (22-29); Chloride 107 mmol/L (98-107); Creatinine Clr Calc Pharmacy 44.5358; Glucose 197 mg/dL (65-115); Magnesium 2.4 mg/dL (1.7-2.3); Osmolality Calculated 308 mOsm/kg (285-295); Potassium 4.8 mmol/L (3.5-5.1); Sodium 140 mmol/L (136-145)
[2024-06-02] MEDS: enoxaparin 80 mg/0.8 mL Syringe SUBCUT ×2 (09:00→20:58)
[2024-06-02] MEDS: aspirin 81 mg EC Tablet PO (09:00)
[2024-06-02] MEDS: atorvastatin 40 mg Tablet PO (09:00)
--- NOTE | 2024-06-02 09:49 | PC.CHAP ---
Pastoral Care Encounter/Spiritual Assessment Type of Contact [] Declined job checker visit [] Patient/Family/Request visit [] Outpatient visit [] Follow-up visit [] Physician referral [] Code/Alert [x] Routine visit [] Staff referral [] Actively dying [] Patient sleeping [x] Family support [] [] Out of room [] Palliative care [] [] Receiving care in room [] Pre-surgical visit [] Trauma [] Long length of stay [] ICU visit [] Other: Relational/Emotional Strength [x Patient feels connected with others/family/visitors/staff [] Distress [] Loneliness/isolation [] Abandonment Spirituality of Patient [x] Person of Tierra [] Attends [employer] of their [place] [x] Believes in Prayer [] Reads Bible or Alevism materials [] There are Spiritual issues to be addressed Babysitter Interventions [x] Prayer [] Active listening [x] Non-anxious presence [x] Spiritual/emotional support [] Crisis/trauma care [] Spiritual counseling [] Bereavement support [] Provided bereavement packet [] Provided Bible/devotional materials [] Provided toy/stuffed animal, coloring book to patient or family member [] Provided Communion [] Anointing/[place] [] Salvation [x] Completed spiritual assessment [] Other: Impact on Illness or Injury [] Angry [] Fearful [] Anxious [] Often cries [] Exhaustion [] Unable to work [] Unable to attend congregation [] Unable to walk/stand [] Unable to read [] Unable to drive [] Unable to eat/drink [] Unable to sleep [] Unable to be with family [] Patient intubated [] Other: Summary Time spent with patient 5 min
[2024-06-02] MEDS: sodium chloride 0.9% 1,000 ML 100 ML IV (11:20)
--- NOTE | 2024-06-02 13:47 | P.PN_ITS ---
Subjective 2 Subjective: Seen this morning. WBC 2.3, hemoglobin 8.0. Currently on therapeutic Lovenox. Echo is pending Creatinine 1.4. Trending down. Resting comfortably in bed with family at bedside. Vitals/I&O/Wt Last Vital Signs Temp 97.8 F 06/02/24 11:32 Pulse 77 06/02/24 11:32 Resp 17 06/02/24 11:32 BP 106/43 06/02/24 11:32 Pulse Ox 93 06/02/24 11:32 O2 Del Method Room Air 06/02/24 11:32 06/01/24 06/02/24 06/02/24 22:59 06:59 14:59 Intake Total 2616.03 / 2616.03 600 / 600 Output Total 575 / 575 Balance 2041.03 / 2041.03 600 / 600 Weight last 48 hrs Weight 77.836 kg Weight 77.111 kg Weight 77.201 kg Physical Exam 2 Narrative: General: Patient is awake and alert. Conversational. Head: Normocephalic. Atraumatic. EOM intact. Cardiovascular: RRR. No gallops. No murmurs. Lungs: Clear to auscultation, no use of accessory muscles, no crackles or wheezes. Skin: No jaundice. No rashes. Abdomen: Normal bowel sounds, abdomen soft and nontender. Extremities: No cyanosis or clubbing. Musculoskeletal: No swollen or erythematous joints. Negative Homans' sign. Hair loss on lower extremities bilaterally. Neurological: Moves all 4 extremities. No myoclonus. Decreased sensation in left lower extremity. Data 06/02/24 04:20 06/02/24 04:20 Micro: Microbiology 06/01/24 19:36 Blood Culture - Preliminary Blood SPECIMEN COLLECTED 06/01/24 19:30 Blood Culture - Preliminary Blood SPECIMEN COLLECTED A&P Assessment and plan (1) Left upper lobe pneumonia: Imaging reviewed; consolidation noted; could be suble underlying nodule/mass Vitals w/ tachycardia and tachypnea No leukocytosis or reported fevers Check procal and CRP Received Zosyn in ED, rotate to CAP coverage w/ ceftriaxone/azithromycin Qualifiers: Pneumonia type: due to unspecified organism Qualified Code(s): J18.9 - Pneumonia, unspecified organism (2) Left kidney mass: Labs with elevated BUN and Cr; unclear if now chronic or KEVIN Contrast exposure from CT PE noted Received IV fluid boluses in ED Repeat labs in AM Plan to order CT abd/pelvis w and wo if renal function permits (3) Pulmonary embolism: Start therapeutic Lovenox; transition to DOAC when indicated No heart strain on CT imaging Elevated NT-proBNP and troponin noted Complete transthoracic echocardiogram ordered Telemetry monitoring Qualifiers: Pulmonary embolism type: multiple subsegmental (without acute cor pulmonale) Qualified Code(s): I26.94 - Multiple subsegmental thrombotic pulmonary emboli without acute cor pulmonale (4) Coronary artery disease: Follows in cardiology clinic Continue home medications Qualifiers: Coronary Disease-Associated Artery/Lesion type: [place] artery [place] vs. transplanted heart: [place] heart Associated angina: without angina Qualified Code(s): I25.10 - Atherosclerotic heart disease of [place] coronary artery without angina pectoris (5) Left leg numbness: Symptoms could be related to spinal stenosis; query if DVT was previously/currently present as well No obvious signs of DVT on exam Consider PT/OT consultation given associated severe weakness producing recent change in functional status Plan DVT ppx: Lovenox 06/02/2024 -Continue plan as per H&P ? Echo is pending at this time Patient is on room air. Will need Eliquis at discharge Continue to treat for pneumonia. Patient on ceftriaxone azithromycin. CT abdomen pelvis pending however creatinine 1.4 today. Will continue to hydrate with normal saline 75 cc/h today. If creatinine improved by tomorrow we will consider CT abdomen pelvis we will hold today secondary to possible contrast-induced nephropathy risk. Attestations 2 Medical Necessity Statement*: KEVIN, PE, PNA potential dc in next 24-48 hours continue to hospitalize for IV fluids today Diagnoses Left upper lobe pneumonia J18.9 Pneumonia type: due to unspecified organism Left kidney mass N28.89 Pulmonary embolism I26.94 Pulmonary embolism type: multiple subsegmental (without acute cor pulmonale) Coronary artery disease involving [place] coronary artery of [place] heart without angina pectoris I25.10 Coronary Disease-Associated Artery/Lesion type: [place] artery [place] vs. transplanted heart: [place] heart Associated angina: without angina Left leg numbness R20.0
--- NOTE | 2024-06-02 14:12 | USCV_ITS ---
Maxim Pitts Age: 84 Gender: M : 1940 Exam Date: 06/02/2024 18:31 Ordering Phys: Juju Bowser MD Technologist: BROOKE Exam Location: [facility] [place] Indication: left leg numbness HISTORY: left leg numbness PROCEDURES: Venous duplex imaging was performed in bilateral lower extremities. The following venous structures were evaluated: common femoral vein, profunda vein, proximal portion of the greater saphenous vein, superficial femoral vein, and the popliteal vein. In addition, the posterior tibial and peroneal veins were evaluated. Serial compression, augmentation maneuvers, and spectral Doppler flow evaluation were performed, which were normal. Bilaterally, the common femoral, superficial femoral, profunda femoral, popliteal, posterior tibial, greater saphenous veins, and the peroneal veins were identified and interrogated in the standard fashion. These veins were found to be easily compressible with spontaneous blood flow. No evidence of thrombus noted. CONCLUSIONS No evidence of right lower extremity DVT. No evidence of left lower extremity DVT. Wong Mir MD (Electronically Signed) Final Date: 03 June 2024 09:15 S
[2024-06-02] MEDS: albuterol 2.5 mg/3 mL Neb INHALATION (18:12)
[2024-06-02] MEDS: AZITHROMYCIN ADD-Vantage 500 MG in 0.9% NaCl ADD-Vantage 250 ML 250 MG IV (20:58)
[2024-06-02] MEDS: cefTRIAXone 1,000 mg SDV 1000 MG IVP (20:58)
[2024-06-02] MEDS: ALPRAZolam 0.5 mg Tablet 0.25 MG PO (22:21)
[2024-06-02] MEDS: sodium chloride 0.9% 1,000 ML 75 ML IV (23:43)
[2024-06-03] VITALS (13 sets, daily range): BP systolic 100–143; BP diastolic 53–66; PULSE 87–104; RESP 16–19; TEMP 36.6–37.1; O2SAT 90–98
[2024-06-03 05:23] LABS: Basophils % 0.8 %; Eosinophils # 0.1 10^3/uL (0.0-0.8); Eosinophils % 1.8 %; Hematocrit 27.2 % (37-53); Lymphocytes # 1.3 10^3/uL (0.8-4.8); Lymphocytes % 26.2 %; Mean Corpuscular HGB Conc 31.3 g/dL (30-55); Mean Corpuscular Hemoglobin 33.9 pg (27-33); Mean Corpuscular Volume 108.4 fl (82-101); Mean Platelet Volume 9.2 fL (7.4-10.4); Monocytes # 0.7 10^3/uL (0.2-0.9); Monocytes % 13.9 %; Neutrophils # 2.93 10^3/uL (1.8-7.7); Neutrophils % 57.1 %; Nucleated Red Blood Cells % 0 %; Platelet Count 253 10^3/cmm (157-399); Red Blood Count 2.51 10^6/uL (3.85-5.65); Red Cell Distribution Width 16.4 % (12.1-15.1); White Blood Count 5.12 10^3/uL (3.29-11.43)
[2024-06-03 05:50] LABS: Anion Gap 13.4 (5-19); Blood Urea Nitrogen 37 mg/dL (8-23); Calcium 9.4 mg/dL (8.5-10.5); Carbon Dioxide 25 mmol/L (22-29); Chloride 111 mmol/L (98-107); Creatinine Clr Calc Pharmacy 44.6969; Glucose 95 mg/dL (65-115); Magnesium 2.2 mg/dL (1.7-2.3); Osmolality Calculated 308 mOsm/kg (285-295); Potassium 4.4 mmol/L (3.5-5.1); Sodium 145 mmol/L (136-145)
[2024-06-03] MEDS: atorvastatin 40 mg Tablet PO (08:56)
[2024-06-03] MEDS: enoxaparin 80 mg/0.8 mL Syringe SUBCUT ×2 (08:57→20:00)
[2024-06-03] MEDS: aspirin 81 mg EC Tablet PO (08:57)
[2024-06-03] MEDS: albuterol 2.5 mg/3 mL Neb INHALATION ×3 (09:16→20:00)
[2024-06-03] MEDS: sodium chloride 0.9% 1,000 ML 75 ML IV (13:47)
--- NOTE | 2024-06-03 15:57 | P.PN_ITS ---
Subjective 2 Subjective: Seen at bedside this morning. No acute overnight events noted Medications: Reviewed: Yes Vitals/I&O/Wt Last Vital Signs Temp 98.0 F 06/03/24 13:00 Pulse 99 06/03/24 14:55 Resp 18 06/03/24 14:45 BP 113/59 06/03/24 13:00 Pulse Ox 93 06/03/24 14:45 O2 Del Method Nasal Cannula 06/03/24 14:45 O2 Flow Rate 2 06/03/24 14:45 06/03/24 06/03/24 06/03/24 06:59 14:59 22:59 Intake Total 596.667 / 2460.000 1720 / 1720 Output Total 400 / 1200 Balance 196.667 / 0732.880 4400 / 1720 Weight last 48 hrs Weight 77.836 kg Weight 77.836 kg Weight 77.111 kg Physical Exam 2 Narrative: General: Patient is awake and alert. Conversational. Head: Normocephalic. Atraumatic. EOM intact. Cardiovascular: RRR. No gallops. No murmurs. Lungs: Clear to auscultation, no use of accessory muscles, no crackles or wheezes. Skin: No jaundice. No rashes. Abdomen: Normal bowel sounds, abdomen soft and nontender. Extremities: No cyanosis or clubbing. Musculoskeletal: No swollen or erythematous joints. Negative Homans' sign. Hair loss on lower extremities bilaterally. Neurological: Moves all 4 extremities. No myoclonus. Decreased sensation in left lower extremity. Data 06/03/24 04:33 06/03/24 04:33 Micro: Microbiology 06/01/24 19:36 Blood Culture - Preliminary Blood NEGATIVE TO DATE 06/01/24 19:30 Blood Culture - Preliminary Blood NEGATIVE TO DATE A&P Assessment and plan (1) Left upper lobe pneumonia: Imaging reviewed; consolidation noted; could be suble underlying nodule/mass Vitals w/ tachycardia and tachypnea No leukocytosis or reported fevers Check procal and CRP Received Zosyn in ED, rotate to CAP coverage w/ ceftriaxone/azithromycin Qualifiers: Pneumonia type: due to unspecified organism Qualified Code(s): J18.9 - Pneumonia, unspecified organism (2) Left kidney mass: Labs with elevated BUN and Cr; unclear if now chronic or KEVIN Contrast exposure from CT PE noted Received IV fluid boluses in ED Repeat labs in AM Plan to order CT abd/pelvis w and wo if renal function permits (3) Pulmonary embolism: Start therapeutic Lovenox; transition to DOAC when indicated No heart strain on CT imaging Elevated NT-proBNP and troponin noted Complete transthoracic echocardiogram ordered Telemetry monitoring Qualifiers: Pulmonary embolism type: multiple subsegmental (without acute cor pulmonale) Qualified Code(s): I26.94 - Multiple subsegmental thrombotic pulmonary emboli without acute cor pulmonale (4) Coronary artery disease: Follows in cardiology clinic Continue home medications Qualifiers: Coronary Disease-Associated Artery/Lesion type: [place] artery [place] vs. transplanted heart: [place] heart Associated angina: without angina Qualified Code(s): I25.10 - Atherosclerotic heart disease of [place] coronary artery without angina pectoris (5) Left leg numbness: Symptoms could be related to spinal stenosis; query if DVT was previously/currently present as well No obvious signs of DVT on exam Consider PT/OT consultation given associated severe weakness producing recent change in functional status Plan DVT ppx: Lovenox 06/02/2024 -Continue plan as per H&P ? Echo is pending at this time Patient is on room air. Will need Eliquis at discharge Continue to treat for pneumonia. Patient on ceftriaxone azithromycin. CT abdomen pelvis pending however creatinine 1.4 today. Will continue to hydrate with normal saline 75 cc/h today. If creatinine improved by tomorrow we will consider CT abdomen pelvis we will hold today secondary to possible contrast-induced nephropathy risk. 06/03/24 Hemoglobin stable at 8.5, creatinine improving to 1.[address] abdomen/pelvis for evaluation of left kidney mass once creatinine 1.2 or less Continue IV fluids normal saline at 75 cc/h Continue Lovenox for PE. Platelet count 253 stable. Plan to discharge on Eliquis. Venous duplex bilateral lower extremity negative for DVT Continue IV ceftriaxone and azithromycin for pneumonia ECHO CONCLUSIONS Normal left ventricular size and systolic function, EF 67%. No regional wall motion abnormalities. Thickened mitral valve. Thickened aortic valve. Trace aortic valve regurgitation. Peak velocity across the aortic valve was 1.6 m/s Mild tricuspid valve regurgitation. Estimated pulmonary artery peak systolic pressure 41 mmHg There is no pericardial effusion. Compared to the study from 02/06/2022, there is no significant change Attestations 2 Medical Necessity Statement*: KEVIN, PE, PNA potential dc in next 24-48 hours continue to hospitalize for IV fluids today Time Spent in Patient Care: 25 minutes Coding Level of Care Code Acute Code for [facility] Fwd Diagnoses Left upper lobe pneumonia J18.9 Pneumonia type: due to unspecified organism Left kidney mass N28.89 Pulmonary embolism I26.94 Pulmonary embolism type: multiple subsegmental (without acute cor pulmonale) Coronary artery disease involving [place] coronary artery of [place] heart without angina pectoris I25.10 Coronary Disease-Associated Artery/Lesion type: [place] artery [place] vs. transplanted heart: [place] heart Associated angina: without angina Left leg numbness R20.0 Time Spent (min) 25
[2024-06-03] MEDS: cefTRIAXone 1,000 mg SDV 1000 MG IVP (20:00)
[2024-06-03] MEDS: AZITHROMYCIN ADD-Vantage 500 MG in 0.9% NaCl ADD-Vantage 250 ML 250 MG IV (20:01)
[2024-06-03] MEDS: ALPRAZolam 0.5 mg Tablet 0.25 MG PO (21:57)
[2024-06-04] VITALS (9 sets, daily range): BP systolic 125–129; BP diastolic 60–68; PULSE 87–96; RESP 16–18; TEMP 36.6–36.8; O2SAT 92–97
[2024-06-04] MEDS: sodium chloride 0.9% 1,000 ML 75 ML IV (03:07)
[2024-06-04] MEDS: enoxaparin 80 mg/0.8 mL Syringe SUBCUT (07:49)
--- NOTE | 2024-06-04 07:51 | CT_ITS ---
WS: [id number] CT ABDOMEN PELVIS TECHNIQUE: Noncontrast CT of the abdomen and pelvis with coronal and sagittal reformatted images. CLINICAL INFORMATION: incidental left renal mass COMPARISON: DLP: 577.[address] scans at [facility] use at least one of these dose optimization techniques: automated e xposure control; mA and/or kV adjustment per patient size (includes targeted exams where dose is matc hed to clinical indication); or iterative reconstruction. FINDINGS: Diffuse circumferential soft tissue mass involving the LEFT kidney with amorphous calcification. Thi s infiltrates the kidney and pararenal space. Extensive retroperitoneal lymphadenopathy with ventral displacement of the duodenum and abdominal aorta. Ventral displacement of the spleen. Compression an d atrophy of the LEFT kidney. No hydronephrosis. Diffuse soft tissue extension into the LEFT psoas wi th periaortic lymphadenopathy. Loss of the normal fat plane in the abutting lower thoracic and upper lumbar spine. Associated satellite nodularity involving the LEFT upper quadrant peritoneum with nodularity extendin g along the diaphragm. Small LEFT pleural effusion. Trace RIGHT pleural fluid. Noncontrast liver appears normal. Extensive cholelithiasis. Gallbladder is contracted. LEFT adrenal g land not definitely identified. Normal RIGHT adrenal gland. RIGHT renal cysts. No hydronephrosis in t he RIGHT kidney. Enlarged prostate measuring 4.1 cm. Induration in the central mesentery with slight nodularity. Sigmoid diverticulosis. No evidence of acute diverticulitis. Small amount of fluid in the LEFT graham lic gutter. Small sclerotic focus in the RIGHT sacral ala. CT/CT abdomen pelvis wo con [id number] IMPRESSION: Exam done without IV contrast which somewhat limits evaluation. 1. Diffuse perirenal circumferential soft tissue mass described above with ext ensive retroperitoneal and para-aortic lymphadenopathy. Involvement of the LEFT psoas. 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 2. Peritoneal nodularity in the LEFT upper quadrant with a small LEFT pleural effusion. Induration with slight nodularity in the central mesentery suspicious for mesenteric involvement. 3. Enlarged prostate measuring 4.1 cm. Recommend correlation PSA. 4. Retroperitoneal lymphadenopathy and psoas involvement results with loss of the normal flat pain abutting the lower thoracic and upper lumbar spine. Patien t at risk for epidural extension. 5. Moderate to severe chronic appearing central canal stenosis at L1-2. 6. Cholelithiasis. Notified Susan Hines MD at 06/04/2024 11:53 AM.
[2024-06-04] MEDS: albuterol 2.5 mg/3 mL Neb INHALATION (07:57)
[2024-06-04] MEDS: atorvastatin 40 mg Tablet PO (08:02)
[2024-06-04] MEDS: aspirin 81 mg EC Tablet PO (08:02)
[2024-06-04 10:20] LABS: Anion Gap 14.5 (5-19); Blood Urea Nitrogen 26 mg/dL (8-23); Calcium 9.7 mg/dL (8.5-10.5); Carbon Dioxide 24 mmol/L (22-29); Chloride 109 mmol/L (98-107); Creatinine Clr Calc Pharmacy 49.0878; Glucose 106 mg/dL (65-115); Osmolality Calculated 301 mOsm/kg (285-295); Potassium 4.5 mmol/L (3.5-5.1); Sodium 143 mmol/L (136-145)
[2024-06-04] MEDS: iohexol 350 mg/mL 500 mL Btl (per mL) PO (10:22)
--- NOTE | 2024-06-04 12:09 | PM.DCS ---
Discharge Providers Date of Admission: 06/02/24 10:24 Date of Discharge: June 04, 2024 Attending Provider at Admission: Cecil Serra MD Attending Provider at Discharge: Susan Hines MD Primary Care Provider: Rajendra Mariano MD Diagnoses at Discharge Discharge Diagnosis (1) Left upper lobe pneumonia: Status: Acute Qualifiers: Pneumonia type: due to unspecified organism Qualified Code(s): J18.9 - Pneumonia, unspecified organism (2) Left kidney mass: Status: Acute (3) Pulmonary embolism: Status: Acute Qualifiers: Pulmonary embolism type: multiple subsegmental (without acute cor pulmonale) Qualified Code(s): I26.94 - Multiple subsegmental thrombotic pulmonary emboli without acute cor pulmonale (4) Coronary artery disease: Status: Acute Qualifiers: Coronary Disease-Associated Artery/Lesion type: [place] artery [place] vs. transplanted heart: [place] heart Associated angina: without angina Qualified Code(s): I25.10 - Atherosclerotic heart disease of [place] coronary artery without angina pectoris (5) Left leg numbness: Status: Acute Reason for Visit Reason for Visit: Weakness Brief History: Maxim Pitts is a 84 year old male with a past medical history significant for coronary artery disease, COPD, hypertension, hyperlipidemia, and multiple other comorbidities who presented the emergency department with severe weakness. Patient states he was in his usual state of health until about 3 weeks ago. At that time he developed significant numbness in his left lower leg distal to his knee, worse in his foot. He reports he is lost proprioception and has significant difficulty walking he has such. He has attributed the symptoms to underlying spinal stenosis. He reports prior surgery for stenosis due to symptoms in his right lower extremity. Patient reports for the past week he has developed severe weakness which is extremely atypical for him. Symptoms have been progressive. Endorses associated symptoms of shortness of breath. Denies productive cough, fevers or chills. Daughter is bedside and very supportive. She provided collateral information. In the emergency department, patient was found to be tachypneic and tachycardic. Labs were notable for elevated BUN to 44 and creatinine 1.6. He is found to have lactic acidosis with a lactate of 3.5. Mild hypercalcemia to 11 noted. Troponin was mildly elevated with a negative delta Troponin. NT-proBNP elevated to 572. Urinalysis was largely unremarkable. Chest x-ray was abnormal. CT PE revealed a right sided pulmonary embolism without evidence of right sided heart strain, small consolidation left upper lobe without ability to exclude underlying nodule or mass, and incidentally found masslike enlargement of the left kidney with irregular nodularity and perinephric stranding. Radiology recommending dedicated CT abdomen pelvis with and without contrast. Radiologist recommended waiting until at least tomorrow to consider CT due to contrast exposure and already elevated renal labs. Hospital Course Hospital Course Assessment and plan (1) Left upper lobe pneumonia: Imaging reviewed; consolidation noted; could be suble underlying nodule/mass Vitals w/ tachycardia and tachypnea No leukocytosis or reported fevers Check procal and CRP Received Zosyn in ED, rotate to CAP coverage w/ ceftriaxone/azithromycin (2) Left kidney mass: Labs with elevated BUN and Cr; unclear if now chronic or KEVIN Contrast exposure from CT PE noted Received IV fluid boluses in ED Repeat labs in AM Plan to order CT abd/pelvis w and wo if renal function permits (3) Pulmonary embolism: Start therapeutic Lovenox; transition to DOAC when indicated No heart strain on CT imaging Elevated NT-proBNP and troponin noted Complete transthoracic echocardiogram ordered Telemetry monitoring (4) Coronary artery disease: Follows in cardiology clinic Continue home medications (5) Left leg numbness: Symptoms could be related to spinal stenosis; query if DVT was previously/currently present as well No obvious signs of DVT on exam Consider PT/OT consultation given associated severe weakness producing recent change in functional status Plan DVT ppx: Lovenox 06/02/2024 -Continue plan as per H&P ? Echo is pending at this time Patient is on room air. Will need Eliquis at discharge Continue to treat for pneumonia. Patient on ceftriaxone azithromycin. CT abdomen pelvis pending however creatinine 1.4 today. Will continue to hydrate with normal saline 75 cc/h today. If creatinine improved by tomorrow we will consider CT abdomen pelvis we will hold today secondary to possible contrast-induced nephropathy risk. 06/03/24 Hemoglobin stable at 8.5, creatinine improving to 1.[address] abdomen/pelvis for evaluation of left kidney mass once creatinine 1.2 or less Continue IV fluids normal saline at 75 cc/h Continue Lovenox for PE. Platelet count 253 stable. Plan to discharge on Eliquis. Venous duplex bilateral lower extremity negative for DVT Continue IV ceftriaxone and azithromycin for pneumonia ECHO CONCLUSIONS Normal left ventricular size and systolic function, EF 67%. No regional wall motion abnormalities. Thickened mitral valve. Thickened aortic valve. Trace aortic valve regurgitation. Peak velocity across the aortic valve was 1.6 m/s Mild tricuspid valve regurgitation. Estimated pulmonary artery peak systolic pressure 41 mmHg There is no pericardial effusion. Compared to the study from 02/06/2022, there is no significant change 06/04/24 Patient doing well today. Saturating 90 to 92% on room air. Serum creatinine still 1.[address] abdomen/pelvis without contrast which showed IMPRESSION: Exam done without IV contrast which somewhat limits evaluation. 1. Diffuse perirenal circumferential soft tissue mass described above with extensive retroperitoneal and para-aortic lymphadenopathy. Involvement of the LEFT psoas. 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 2. Peritoneal nodularity in the LEFT upper quadrant with a small LEFT pleural effusion. Induration with slight nodularity in the central mesentery suspicious for mesenteric involvement. 3. Enlarged prostate measuring 4.1 cm. Recommend correlation PSA. 4. Retroperitoneal lymphadenopathy and psoas involvement results with loss of the normal flat pain abutting the lower thoracic and upper lumbar spine. Patient at risk for epidural extension. 5. Moderate to severe chronic appearing central canal stenosis at L1-2. 6. Cholelithiasis. Given above results patient need to follow-up in hematology oncology as outpatient for further management. Family including and daughters at bedside, explained and counseled about CT results and plan of care. Family seems to understand and would follow-up as an outpatient in heme-onc clinic. Will discharge on oral antibiotics and Eliquis for PE Physical Exam Narrative: General: Patient is awake and alert. Conversational. Head: Normocephalic. Atraumatic. EOM intact. Cardiovascular: RRR. No gallops. No murmurs. Lungs: Clear to auscultation, no use of accessory muscles, no crackles or wheezes. Skin: No jaundice. No rashes. Abdomen: Normal bowel sounds, abdomen soft and nontender. Extremities: No cyanosis or clubbing. Musculoskeletal: No swollen or erythematous joints. Negative Homans' sign. Hair loss on lower extremities bilaterally. Neurological: Moves all 4 extremities. No myoclonus. Decreased sensation in left lower extremity. Discharge Data Studies Completed and Pending Completed Studies During Hospitalization Category Date Time Status CT abdomen pelvis [facility] [id number] Stat Cat Scan 06/04/24 07:[address] angio chest PE protcl [id number] Stat Cat Scan 06/01/24 16:19 Completed XR chest 1V portable [id number] Stat Exams 06/01/24 15:56 Completed CV. echo complete* [id number] Stat Ultrasound 06/01/24 19:35 Completed US venous duplex lower extremity bilat [CV venous Ultrasound 06/02/24 14:12 [place] [id number]] Routine Pending at discharge Category Date Time Status Blood Culture Stat Lab 06/01/24 19:36 Results Radiology Impressions Chest X-Ray 06/01/24 15:56 IMPRESSION: 1. There is either a skin fold or a loculated pneumothorax in the left lateral mid and lower pleural space. 2. Left lung airspace opacities as described above. 3. Consider CT for further evaluation if clinically warranted. 4. THIS REPORT CONTAINS FINDINGS THAT MAY BE CRITICAL TO PATIENT CARE. The findings were verbally communicated via telephone conference with EMMY BOURNE at 5:02 PM PRICING ANALYST on 06/01/2024. The findings were acknowledged and understood. Chest CTA 06/01/24 16:19 IMPRESSION: 1. Right-sided pulmonary emboli without evidence of right heart strain. 2. Small area of consolidation in the left upper lobe related to infectious/inflammatory etiologies however cannot exclude underlying nodule/mass. 3. Masslike enlargement of the left kidney with surrounding irregular nodularities and perinephric stranding. This needs to be further evaluated with CT abdomen and pelvis with and without contrast. COMMENTS: Consistent with the [place] [employer]'s Incidental Findings Committee white paper (J Am Cal Radiol 2018): Any incidental renal lesion less than 1 cm or classified as too small to characterize, or any incidental cystic renal lesion characterized as simple-appearing, is likely benign. No follow-up imaging is recommended for these lesions per consensus recommendations based on imaging criteria. ADDENDUM: 06/01/24 1841 THIS REPORT CONTAINS FINDINGS THAT MAY BE CRITICAL TO PATIENT CARE. The findings were verbally communicated via telephone conference with EMMY BOURNE at 6:39 PM PRICING ANALYST on 06/01/2024. The findings were acknowledged and understood. Abdomen/Pelvis CT 06/04/24 07:51 IMPRESSION: Exam done without IV contrast which somewhat limits evaluation. 1. Diffuse perirenal circumferential soft tissue mass described above with extensive retroperitoneal and para-aortic lymphadenopathy. Involvement of the LEFT psoas. 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 2. Peritoneal nodularity in the LEFT upper quadrant with a small LEFT pleural effusion. Induration with slight nodularity in the central mesentery suspicious for mesenteric involvement. 3. Enlarged prostate measuring 4.1 cm. Recommend correlation PSA. 4. Retroperitoneal lymphadenopathy and psoas involvement results with loss of the normal flat pain abutting the lower thoracic and upper lumbar spine. Patient at risk for epidural extension. 5. Moderate to severe chronic appearing central canal stenosis at L1-2. 6. Cholelithiasis. Notified Susan Hines MD at 06/04/2024 11:53 AM. Laboratory Results WBC 5.12 10^3/uL (3.29-11.43) 06/03/24 04:33 RBC 2.51 10^6/uL (3.85-5.65) L 06/03/24 04:33 Hgb 8.50 g/dL (11.27-16.99) L 06/03/24 04:33 Hct 27.2 % (37-53) L 06/03/24 04:33 MCV 108.4 fl (82-101) H 06/03/24 04:33 MCH 33.9 pg (27-33) H 06/03/24 04:33 MCHC 31.3 g/dL (30-55) 06/03/24 04:33 RDW 16.4 % (12.1-15.1) H 06/03/24 04:33 Plt Count 253 10^3/cmm (157-399) 06/03/24 04:33 MPV 9.2 fL (7.4-10.4) 06/03/24 04:33 Neut % (Auto) 57.1 % 06/03/24 04:33 Lymph % (Auto) 26.2 % 06/03/24 04:33 [place] % (Auto) 13.9 % 06/03/24 04:33 Eos % (Auto) 1.8 % 06/03/24 04:33 Baso % (Auto) 0.8 % 06/03/24 04:33 Neut # (Auto) 2.93 10^3/uL (1.8-7.7) 06/03/24 04:33 Lymph # (Auto) 1.3 10^3/uL (0.8-4.8) 06/03/24 04:33 [place] # (Auto) 0.7 10^3/uL (0.2-0.9) 06/03/24 04:33 Eos # (Auto) 0.1 10^3/uL (0.0-0.8) 06/03/24 04:33 Baso # (Auto) 0.0 10^3/uL (0.0-0.1) 06/03/24 04:33 Nucleated RBC % (auto) 0 % 06/03/24 04:33 Nucleated RBCs # 0.0 /100WBC 06/03/24 04:33 Specimen Type Arterial 06/01/24 16:31 Sample Site Radial, right 06/01/24 16:31 ABG pH 7.46 (7.35-7.45) H 06/01/24 16:31 ABG pCO2 37.0 mmHg (35-45) 06/01/24 16:31 ABG pO2 69.0 mmHg (80.0-100.0) L 06/01/24 16:31 ABG PO2/FiO2 Ratio 328 06/01/24 16:31 ABG HCO3 26.2 mmol/L (22-26) H 06/01/24 16:31 ABG O2 Saturation 94.9 06/01/24 16:31 ABG Base Excess 2.3 mmol/L (-2.0-2.0) H 06/01/24 16:31 Venkat Test Pos 06/01/24 16:31 A-a O2 Gradient 4.3 mmHg (5-10) L 06/01/24 16:31 Hematocrit 31.4 % (42-52) L 06/01/24 16:31 Hgb O2 Saturation 92.7 % (95-100) L 06/01/24 16:31 Carboxyhemoglobin 1.4 %THgb (0.4-20.1) 06/01/24 16:31 Methemoglobin 0.8 % (0.4-1.5) 06/01/24 16:31 Total Hemoglobin 10.2 g/dL (14-18) L 06/01/24 16:31 Sodium 139.0 mmol/L (131-143) 06/01/24 16:31 Potassium 4.2 mmol/L (3.5-5.0) 06/01/24 16:31 Glucose 109.0 mg/dL (70-115) 06/01/24 16:31 Ionized Calcium 1.4 mmol/L (1.1-1.4) 06/01/24 16:31 O2 Delivery Device Room air 06/01/24 16:31 FiO2 21.0 % 06/01/24 16:31 Online Marketing Manager ID [email or web address] 06/01/24 16:31 Sodium 143 mmol/L (136-145) 06/04/24 09:58 Potassium 4.5 mmol/L (3.5-5.1) 06/04/24 09:58 Chloride 109 mmol/L (98-107) H 06/04/24 09:58 Carbon Dioxide 24 mmol/L (22-29) 06/04/24 09:58 Anion Gap 14.5 (5-19) 06/04/24 09:58 BUN 26 mg/dL (8-23) H 06/04/24 09:58 Creatinine 1.3 mg/dL (0.7-1.2) H 06/04/24 09:58 GFR Calculation Not Reportable 06/04/24 09:58 Glucose 106 mg/dL (65-115) 06/04/24 09:58 Calculated Osmolality 301 mOsm/kg (285-295) H 06/04/24 09:58 Lactic Acid 3.5 mmol/L (0.5-2.2) H 06/01/24 16:09 Lactic Acid (Sepsis) 2.1 mmol/L (0.5-2.2) 06/01/24 19:30 Calcium 9.7 mg/dL (8.5-10.5) 06/04/24 09:58 Magnesium 2.2 mg/dL (1.7-2.3) 06/03/24 04:33 Total Bilirubin 0.9 mg/dL (0.15-1.2) 06/01/24 16:09 AST 20 U/L (0-40) 06/01/24 16:09 ALT 12 U/L (0-41) 06/01/24 16:09 Alkaline Phosphatase 103 U/L (40-130) 06/01/24 16:09 Creatine Kinase 45 U/L (39-308) 06/01/24 16:09 Troponin T Baseline 43 ng/L (0-15) H 06/01/24 16:09 Troponin T 120 Minute 34.13 ng/L (0-15) H 06/01/24 18:20 Delta Troponin T -8.87 ABS# (0-10) L 06/01/24 18:20 Troponin T Hi Sens 6Hr 33.07 ng/L (0-15) H 06/01/24 22:45 Troponin T Hi Sens 6Hr Delta -9.93 ng/L (0-12) L 06/01/24 22:45 C-Reactive Protein 56.8 mg/L (0.0-4.9) H 06/01/24 18:20 NT-Pro-B Natriuret Pep 572 pg/mL (0-450) H 06/01/24 16:09 Total Protein 6.1 g/dL (6.6-8.7) L 06/01/24 16:09 Albumin 3.8 g/dL (3.5-5.2) 06/01/24 16:09 Globulin 2.3 g/dL (1.3-4.6) 06/01/24 16:09 Procalcitonin 0.23 ng/mL (0-0.5) 06/01/24 18:20 Urine Color Yellow (Yellow) 06/01/24 15:55 Urine Appearance Clear (CLEAR) 06/01/24 15:55 Urine pH 5.0 (5-7) 06/01/24 15:55 Ur Specific [place] 1.019 (1.005-1.030) 06/01/24 15:55 Urine Protein Trace (Negative) A 06/01/24 15:55 Urine Glucose (UA) Negative (Normal) 06/01/24 15:55 Urine Ketones Negative (Negative) 06/01/24 15:55 Urine Blood Negative (Negative) 06/01/24 15:55 Urine Nitrate Negative (Negative) 06/01/24 15:55 Urine Bilirubin Negative (Negative) 06/01/24 15:55 Urine Urobilinogen 1.0 mg/dL (Negative) 06/01/24 15:55 Ur Leukocyte Esterase Negative (Negative) 06/01/24 15:55 Urine RBC 0-2 /hpf (0-2) 06/01/24 15:55 Urine WBC 0-5 /hpf (0-5) 06/01/24 15:55 Ur Squamous Epith Cells 0-5 /hpf (0-5) 06/01/24 15:55 Amorphous Sediment Not Reportable 06/01/24 15:55 Urine Bacteria None seen /hpf (NONE) 06/01/24 15:55 Hyaline Casts 28.13 /lpf 06/01/24 15:55 Fine Granular Casts 0-4 /lpf H 06/01/24 15:55 Coronavirus (PCR) Negative (Negative) 06/01/24 16:14 Influenza A (PCR) Negative (Negative) 06/01/24 16:14 Influenza Type B (PCR) Negative (Negative) 06/01/24 16:14 RSV (PCR) Negative (Negative) 06/01/24 16:14 Vitals Last Vital Signs Temp 98.0 F 06/04/24 11:33 Pulse 87 06/04/24 11:33 Resp 18 06/04/24 11:33 BP 128/60 06/04/24 11:33 Pulse Ox 92 06/04/24 12:08 O2 Del Method Room Air 06/04/24 11:33 O2 Flow Rate 2 06/04/24 07:52 Discharge Plan Discharge Patient Disposition: Home Condition: Stable Prescriptions: New levofloxacin 750 mg tablet 750 mg PO Q24H 10 Days Qty: 10 0RF Eliquis 5 mg tablet 5 mg PO Q12H Qty: 14 0RF Continued albuterol sulfate 2.5 mg /3 mL (0.083 %) solution for nebulization 2.5 mg INHALATION Q6H atorvastatin 40 mg tablet 40 mg PO DAILY aspirin [Marcell Low Dose Aspirin] 81 mg Tablet,Delayed Release (Dr/Ec) 81 mg PO DAILY Held lisinopril 20 mg tablet 20 mg PO DAILY Hold Instructions: soft BP hydrochlorothiazide 12.5 mg tablet 12.5 mg PO DAILY Hold Instructions: soft BP Discharge Orders: Discharge Order (Routine); Ordered 06/04/24 Ordered By: Susan Hines Referrals: Rajendra Mariano MD [Primary Care Provider] - Discharge Diet: Cardiac Discharge Activity: Increase activity as tolerated Patient Instructions: Opioid Safety Activity Restrictions/Additional Instructions: Need hematology oncology clinic appointment scheduled. Discharge Attestations Time Spent in Discharge Care*: less than 30 min Quality Metrics Clinical Quality Measures [ No reported AMI, CVA or VTE this stay] Coding Level of Care Code Acute Code for Chg Fwd Diagnoses Left upper lobe pneumonia J18.9 Pneumonia type: due to unspecified organism Left kidney mass N28.89 Pulmonary embolism I26.94 Pulmonary embolism type: multiple subsegmental (without acute cor pulmonale) Coronary artery disease involving [place] coronary artery of [place] heart without angina pectoris I25.10 Coronary Disease-Associated Artery/Lesion type: [place] artery [place] vs. transplanted heart: [place] heart Associated angina: without angina Left leg numbness R20.0 Time Spent (min) 20
--- NOTE | 2024-06-04 12:46 | PC.SOCIAL ---
IMM Updated Updated pt on IMM. No questions voiced. Provided pt a copy. Initialed, dated, & timed a copy & placed in chart.
== END 2024-06-04 14:45 | disposition home or self-care (01) | DRG 175 ==
LOC: ER 19:24 → MEDSURG 20:41
PROVIDERS: Internal Medicine; Admitting Provider Internal Medicine; Emergency Provider Family Medicine; PCP Family Medicine; Visit Provider Internal Medicine
DX: I26.94 Multiple subsegmental thrombotic pulmonary emboli without acute cor pulmonale (principal); J18.9 Pneumonia, unspecified organism; E87.20 Acidosis, unspecified; N17.9 Acute kidney failure, unspecified; N28.89 Other specified disorders of kidney and ureter; I25.10 Atherosclerotic heart disease of native coronary artery without angina pectoris; R20.0 Anesthesia of skin; J44.9 Chronic obstructive pulmonary disease, unspecified; I10 Essential (primary) hypertension; E78.5 Hyperlipidemia, unspecified; Z79.82 Long term (current) use of aspirin
CPT/HCPCS: 0241U; 36415; 36600; 71045; 71275; 74176; 80048; 80051; 80053; 81001; 82330; 82550; 82805; 83605; 83735; 83880; 84145; 84484; 85025; 86140; 87040; 93005; 93306; 93970; 94640; 94760; 96365; 96372; 99285; G0378; J0456; J0696; J1100; J1650; J2543; J7030; J7050; J7613

== ENCOUNTER 2024-06-07 15:03 | Oncology outpatient (recurring) (ONCR) | payer MEDICARE, BC, SELFPAY | END 2024-06-12 23:59 | disposition home or self-care (01) | LOC: ONCMED 15:04 | PROVIDERS: PCP Family Medicine; Visit Provider Internal Medicine Medical Oncology | DX: I26.94 Multiple subsegmental thrombotic pulmonary emboli without acute cor pulmonale (principal); D64.9 Anemia, unspecified; R19.00 Intra-abdominal and pelvic swelling, mass and lump, unspecified site; R59.0 Localized enlarged lymph nodes; Z79.01 Long term (current) use of anticoagulants | CPT/HCPCS: 99205 ==